=== PATIENT | female | born 1975 | race Caucasian/White ===

== ENCOUNTER → 2016-11-11 | Outpatient (CLI) | payer OTHER | END | disposition home or self-care (01) | LOC: C.PAPS 17:14 | PROVIDERS: ATTEND Obstetrics & Gynecology | DX: Z01.419 Encounter for gynecological examination (general) (routine) without abnormal findings (principal); R87.612 Low grade squamous intraepithelial lesion on cytologic smear of cervix (LGSIL) ==

== ENCOUNTER → 2016-12-12 | Outpatient (CLI) | payer OTHER | END | disposition home or self-care (01) | LOC: C.PATHSPEC 13:58 | PROVIDERS: ATTEND Obstetrics & Gynecology | DX: R87.613 High grade squamous intraepithelial lesion on cytologic smear of cervix (HGSIL) (principal) ==

== ENCOUNTER → 2017-02-06 | Outpatient (CLI) | payer OTHER | END | disposition home or self-care (01) | LOC: C.PATHSPEC 13:45 | PROVIDERS: ATTEND Obstetrics & Gynecology | DX: R87.613 High grade squamous intraepithelial lesion on cytologic smear of cervix (HGSIL) (principal) ==

== ENCOUNTER → 2017-07-23 | Outpatient (CLI) | payer OTHER | END | disposition home or self-care (01) | LOC: C.PAPS 14:16 | PROVIDERS: ATTEND Obstetrics & Gynecology | DX: N87.1 Moderate cervical dysplasia (principal) ==

== ENCOUNTER 2017-09-26 05:53 | Observation (INO) | payer OTHER ==
[2017-09-02 13:19] VITALS: BMI 24.0
--- NOTE | 2017-09-02 13:45 | PAT Medication Instructions ---
Service Date Sep 02, 2017. Current Home Medication List No Active Prescriptions or Reported Meds Medication Instructions For Your Scheduled Surgery No Active Prescriptions or Reported Meds-- Please contact PAT department if starting any medications prior to surgery. If you have any questions please call us at [phone] or [phone] or [phone]
[2017-09-02 14:30] LABS: BASO % 0.6 %; BASO ABS # 0.04 K/uL (0-0.2); COMPLETE YES; EOS % 1.3 %; HEMATOCRIT 37.9 % (37-47); IG% 0.2 %; LYMPH % 30.1 %; LYMPH ABS # 1.87 K/uL (1.2-3.4); MEAN CELL VOLUME 87.5 fL (80-100); MEAN CORPUSCULAR HEMOGLOBIN 28.2 pg (25-34); MEAN CORPUSCULAR HGB CONC 32.2 g/dl (32-36); MEAN PLATELET VOLUME 9.8 fL (7.4-10.4); MONO % 12.7 %; NEUT % 55.1 %; PLATELET COUNT 385 K/uL (130-400); RED BLOOD COUNT 4.33 M/uL (4.2-5.4); WHITE BLOOD COUNT 6.22 K/uL (4.8-10.8)
[2017-09-02 15:21] LABS: BUN/CREATININE RATIO 13.4 (10-20); CALCIUM 8.9 mg/dl (8.5-10.1); CREATININE 0.7 mg/dl (0.60-1.20); POTASSIUM 4.2 mmol/L (3.5-5.1)
[2017-09-26] VITALS (8 sets, daily range): BP systolic 119–141; BP diastolic 72–87; PULSE 56–65; TEMP 36.3–37; O2SAT 97–100; Ht 154.9 cm; Wt 57.4 kg
[~2017-09-26] VITALS: Ht 154.9 cm; Wt 57.4 kg
[2017-09-26] MEDS ORDERED: LACTATED RINGER'S 1000ML 1,000 ML IV SCH ×4 (06:00→09:15)
[2017-09-26] MEDS ORDERED: CEFAZOLIN 2000MG IV PUSH 10 ML IV SCH (06:00)
[2017-09-26] MEDS ORDERED: ACETAMINOPHEN 1000 MG/100 ML IV IV ONE (06:28)
--- NOTE | 2017-09-26 06:36 | History & Physical Bridge Note ---
H&P Re-Evaluation Bridge Note: I have examined the patient, reviewed the History & Physical and in the interval since the performance of the History & Physical I have noted the following changes of clinical significance: No changes noted
[2017-09-26] MEDS ORDERED: LIDOCAINE HCL 2% 2 ML VIAL (20MG/ML) ONE (06:40)
[2017-09-26] MEDS ORDERED: ONDANSETRON INJ 2 MG/ML 2 ML VIAL ONE (06:40)
[2017-09-26] MEDS ORDERED: DEXAMETHASONE SOD INJ 4 MG/ML VIAL ONE (06:40)
[2017-09-26] MEDS ORDERED: NEOSTIGMINE METHYLSULFATE 5 MG/5 ML SYR ONE (06:40)
[2017-09-26] MEDS ORDERED: MIDAZOLAM HCL 1 MG/ML 2ML VIAL ONE (06:40)
[2017-09-26] MEDS ORDERED: FENTANYL CITRATE INJ 50 MCG/1 ML 2 ML VIAL ONE ×2 (06:40→07:57)
[2017-09-26] MEDS ORDERED: GLYCOPYRROLATE INJ 0.2 MG/ML VIAL ONE (06:40)
[2017-09-26] MEDS ORDERED: ROCURONIUM BROMIDE 10 MG/ML 5 ML VIAL IV ONE (06:40)
[2017-09-26] MEDS ORDERED: PROPOFOL IV EMULSION 10 MG/ML 20 ML VIAL IV ONE (06:40)
[2017-09-26] MEDS ORDERED: BUPIVACAINE 0.5 % 5 MG/1 ML MPF 30ML VIAL ONE (07:04)
[2017-09-26] MEDS ORDERED: HYDROmorphone INJ 2 MG/ML SYR/VIAL ONE (08:08)
[2017-09-26] MEDS ORDERED: PROMETHAZINE HCL INJ 12.5 MG in SODIUM CHLORIDE 0.9% 50ML 50 ML IV PRN ×2 (08:15→09:15)
[2017-09-26] MEDS ORDERED: NALOXONE HCL 0.4 MG/1 ML VIAL/CARP IV PRN (08:15)
[2017-09-26] MEDS ORDERED: ATROPINE SULFATE 0.1 MG/ML 5ML SYR IV PRN (08:15)
[2017-09-26] MEDS ORDERED: EpHEDrine SULFATE INJ 50 MG/ML AMP IV PRN (08:15)
[2017-09-26] MEDS ORDERED: LABETALOL HCL IV 5 MG/ML 20ML IV PRN (08:15)
[2017-09-26] MEDS ORDERED: ONDANSETRON INJ 2 MG/ML 2 ML VIAL IV PRN ×2 (08:15→09:15)
[2017-09-26] MEDS ORDERED: FLUMAZENIL 0.1 MG/1 ML 10 ML VIAL IV PRN (08:15)
[2017-09-26] MEDS ORDERED: TISSEEL FIBRIN SEALANT 4ML TOP ONE (08:56)
[2017-09-26] MEDS ORDERED: MEPERIDINE HCL 50 MG/ML CARP IV PRN ×2 (09:15)
[2017-09-26] MEDS ORDERED: OXYCODONE/ACETAMINOPHEN 5-325 TAB PO PRN ×2 (09:15)
[2017-09-26] MEDS ORDERED: SIMETHICONE 80 MG CHEW PO PRN (09:15)
[2017-09-26] MEDS ORDERED: IBUPROFEN 600 MG TAB PO PRN (09:15)
[2017-09-26] MEDS ORDERED: ACETAMINOPHEN 325 MG TAB PO PRN (09:15)
[2017-09-26] MEDS ORDERED: KETOROLAC TROMETHAMINE 30 MG/ML VIAL IV. PRN (09:15)
[2017-09-26] MEDS ORDERED: MAGNESIUM HYDROXIDE SUSP 30 ML UDC PO PRN (09:15)
[2017-09-26] MEDS ORDERED: PROMETHAZINE HCL INJ 25 MG in SODIUM CHLORIDE 0.9% 50ML 50 ML IV PRN (09:15)
[2017-09-26] MEDS ORDERED: ZOLPIDEM TARTRATE 5 MG TAB PO PRN (09:15)
[2017-09-26] MEDS ORDERED: BISACODYL 10 MG SUPP PR PRN (09:15)
--- NOTE | 2017-09-26 09:17 | [facility] Post Operative Brief Note ---
Immediate Operative Summary Operative Date Sep 26, 2017. Pre-Operative Diagnosis Menorrhagia Post coital bleeding Post-Operative Diagnosis Same Procedure(s) Performed Robotic Assisted Total Laparoscopic Hysterectomy, Bilateral Salpingectomy, Cystoscopy Surgeon Dr Castro Communications Superintendent Surgeon(s) . Estimated Blood Loss 40ML Findings normal anatomy Specimens A. Uterus, bilateral fallopian tubes and cervix Drains Salinas Anesthesia General Complication(s) None Disposition Recovery Room / PACU
--- NOTE | 2017-09-26 09:17 | Discharge Instructions ---
Discharge Instructions Date of Service Sep 26, 2017. Admission Reason for Admission: Cervical Inraepithelial Neoplasia; Menorrhagia Discharge Discharge Diagnosis / Problem: menorrhagia Discharge Goals Goal(s): Routine recovery after surgery Activity Recommendations Activity Limitations: per Instructions/Follow-up section . Instructions / Follow-Up Instructions / Follow-Up POST OPERATIVE: BOWEL FUNCTION/MEDICATIONS: 1. Constipation pain and discomfort are the most common complaints 5-7 days after surgery. Points 2-6 address the things that can help. 2. Chewing gum can help stimulate the gut and help improve digestion and motility. 3. Milk of Magnesia 1-2 times per day until return of bowel function. 4. Colace is a stool softener that helps. Taking this 2-3 times per day until bowel function returns to normal is highly recommended. 5. Dulcolax is a laxative that may be used if several days have passed without a bowel movement. Alternatively Miralax may be used daily instead. 6. Drink plenty of fluids as this will also reduce constipation. 7. Narcotic pain medications will be prescribed by your physician. They are safe to use and we encourage you to use them. If you are not allergic, ibuprofen will also be prescribed. Many patients will be able to transition off of the narcotic medications to ibuprofen by postoperative day 3. ACTIVITY RECOMMENDATIONS: 1. Get plenty of rest and listen to your body. If you are tired, take a nap. 2. You may shower, but do not take a tub bath until you see your doctor at the 2 week post operative visit. 3. Absolutely NO intercourse and nothing in the vagina until you are examined by your doctor at the 6 week visit. At that visit it will be determined when such activities can be resumed. This can range from 6-12 weeks after your surgery depending on healing time. 4. The main physical activity in the first week should be walking. By the second week you can slowly increase activity. There are no limits on walking up and down stairs. 5. Do not lift more than 5-10 lbs for 4 weeks. Remember the "one-handed rule", i.e. if you can lift something with only one hand it's likely okay. 6. Minimize supervisor metal hanging like vacuuming and exercising for 4 weeks. "Overdoing it" can lead to incisions not healing, pain and vaginal bleeding , so again, listen to your body. 7. Driving can be resumed when you feel able. Do not drive within 24 hours of taking a narcotic medication. EXPECTATIONS: 1. Vaginal spotting, bleeding and discharge are common after surgery. There may even be an odor to the discharge which is often related to sutures used in the vagina. If you experience heavy vaginal bleeding, call the office number day or night [phone]. 2. Bladder discomfort is common after surgery from the catheter. This usually resolves in 1-2 weeks. 3. By the end of the 3rd or 4th week you should be feeling much better. It may take up to 6 weeks for your energy levels to return to normal. 4. Narcotic medications have side effects such as: dizziness, headache, nausea and/or vomiting. If you suspect your pain medication is causing problems, call our office and we may be able to prescribe an alternate medication. 5. The skin incisions are often covered with a liquid bandage. This will gradually peel off over time. CALL THE OFFICE IF YOU HAVE ANY OF THE FOLLOWIN. Temperature of 101 degrees or higher. 2. Severe abdominal or pelvic pain not relieved by pain medication. 3. Persistent nausea or vomiting. 4. Increased pain with urination or difficulty urinating. 5. Bright red bleeding that soaks more than 1 pad per hour. CONTACT PHONE NUMBERS: Main Office: [phone] Surgical Nurse: [phone] extension [phone] Avoid all tobacco products. If you need help to stop smoking, call [place]'s FREE QUITLINE at . This is a free call. Current Hospital Diet Patient's current hospital diet: Discharge Diet Recommended Diet: Regular Diet Procedures Procedures Performed: Robotic Assisted Total Laparoscopic Hysterectomy, Bilateral Salpingectomy, Cystoscopy Pending Studies Studies pending at discharge: no Medical Emergencies . Who to Call and When: Medical Emergencies: If at any time you feel your situation is an emergency, please call 911 immediately. . Non-Emergent Contact Non-Emergency issues call your: Grapple Skidder Operator . . "Provider Documentation" section prepared by Thong Castro. . VTE Core Measure Inpt VTE Proph given/why not?: Jeremy Aguillon, SCD's
[2017-09-26] MEDS ORDERED: MTR600X PO ×2 (09:18)
[2017-09-26] MEDS ORDERED: OXYC-57 PO ×2 (09:18)
--- NOTE | 2017-09-26 09:36 | OPERATIVE REPORT ---
DATE OF OPERATION: 09/26/2017 PREOPERATIVE DIAGNOSIS: Menorrhagia, cervical dysplasia. POSTOPERATIVE DIAGNOSIS: Same. PROCEDURE: Robotically assisted total laparoscopic hysterectomy, bilateral salpingectomy, cystoscopy. SURGEON: Dr. Castro. TABLE WORKER: None. ESTIMATED BLOOD LOSS: 40 mL. FINDINGS: Normal anatomy. SPECIMENS: Uterus, bilateral fallopian tubes and cervix. DRAINS: Salinas catheter. ANESTHETIC: General. COMPLICATIONS: None. DISPOSITION: Recovery room. OPERATION AND FINDINGS: DESCRIPTION OF PROCEDURE: Ania was given a general anesthetic, prepped and draped in dorsolithotomy position in [facility]. IV antibiotics given preoperatively. Salinas catheter placed in her bladder and VCare sewn into her cervix usual fashion. Gloves changed and a subumbilical incision made with scalpel cutting down through using open Cherrie technique through the subcutaneous fat to the fascia, splitting the rectus muscles and entering the peritoneal cavity without difficulty. At this stage, we then placed a blunt-tipped Cherrie trocar balloon inflated for stabilization of the port and then CO2 gas to insufflate the abdomen. FINDINGS: Upper abdomen normal, no sign of visceral organ injury. Deep Trendelenburg position obtained and uterus appeared normal as did the adnexa. Two robotic ports, 1 in the left, 1 in the right placed under direct visualization as well as an 11 mm bladeless accessory left upper quadrant port as well. Using the VCare, I manipulated the uterus, identified the ureters both on left and right side, they followed a normal course. The procedure was begun first by removing the left fallopian tube and then the right. These removed through the accessory port. We then coagulated the blood supply distal to the ovary on the left side, well away from the left ureter, cut this with monopolar bryson, same process with the round ligament. Bladder flap then sharply dissected and then uterine vessels skeletonized. We then coagulated the left uterine artery and vein with the bipolar [place]. Note we were well away from the left ureter. These vessels were then cut and then bladder flap was fully dissected away. Same process on the right. Once both uterine vessel ligations were coagulated we made an anterior colpotomy. Anterior colpotomy was then continued for full colpotomy staying medial to our uterine vessel ligations. Uterus was then removed into the vagina and maintained there for pneumoperitoneum. The instrument exchange then occurred. Arm #1 became the bartolo belly dump driver and the DANIE, #2 became the cobra. A 12 inch, 2-0 90 day V-Loc suture passed through the accessory port. Cuff closed from left to right, back right to left, taking at least good 1 cm full thickness bites of vaginal mucosa. Suture was then cut so there was no tail and then needle removed through the accessory port. After generous irrigation and suction, Tisseel was applied to the site. Hemostasis was excellent. Cystoscopy was performed by removing the Salinas catheter. Cystoscope revealed a normal bladder, no sign of damage, no sutures visualized and good strong jets of bluish dye from left and right ureter openings. Cystoscope removed and a new Salinas catheter placed. Uterus had been removed from the vagina. Bleeding was minimal. Regowned and gloved. After scrubbing back in and then removed all the robotic instruments. Gas allowed to escape. Ports removed as well as instruments. Robot had been undocked. Incision injected with 0.5% Marcaine. Fascia closed with [id number] 0 Vicryl sutures and left upper quadrant as well. Incision closed this way and then 4-0 subcuticular Monocryl closures with Dermabond. Sponge and instrument counts correct at the end of the procedure. I attest to the content of the Intraoperative Record and any orders documented therein. Any exception s are noted below.
[2017-09-26] MEDS: HYDROmorphone INJ 1 MG/ML SYR IV PRN ×2 (09:40→09:45)
--- NOTE | 2017-09-26 10:19 | Anesthesiology Progress Note ---
Anesthesia Post Op Note Date & Time Sep 26, 2017 at 10:19 Vital Signs Pain Intensity: 4 Vital Signs Past 12 Hours Date Time Temp Pulse Resp B/P (MAP) Pulse Ox O2 Delivery O2 Flow Rate FiO2 09/26/17 10:15 57 14 137/83 100 Nasal Cannula 2 09/26/17 10:05 36.8 64 14 159/79 97 Nasal Cannula 2 09/26/17 09:55 71 14 138/80 97 Room Air 09/26/17 09:45 68 14 146/83 100 Oxymask 3 09/26/17 09:35 60 14 146/79 100 Oxymask 5 09/26/17 09:27 36.1 72 12 138/70 100 Oxymask 10 09/26/17 06:42 37 64 16 129/77 (94) 97 Room Air Notes Mental Status: alert / awake / arousable, participated in evaluation Pt Amnestic to Procedure: Yes Nausea / Vomiting: adequately controlled Pain: adequately controlled Airway Patency, RR, SpO2: stable & adequate BP & HR: stable & adequate Hydration State: stable & adequate Anesthetic Complications: no major complications apparent
[2017-09-26] MEDS ORDERED: IV FLUIDS COMPLETED PRN (12:30)
[2017-09-26] MEDS ORDERED: DOCUSATE SODIUM 100 MG CAP PO SCH (21:00)
--- NOTE | 2017-09-27 12:09 | Medical Student: [facility] ---
Operative Report Operative Date Sep 27, 2017. Pre-Operative Diagnosis Menorrhagia and low grade cervical dysplsia Post-Operative Diagnosis Menorrhagia and low grade cervical dysplasia Procedure(s) Performed Laproscopic Total Hysterectomy, bilateral salpigectomy, and cystoscopy Surgeon Dr. Castro Supervisor Electronics Assembly Surgeon(s) none Estimated Blood Loss 40cc Findings Normal Uterus and adnexa. Specimens Uterus and bilateral fallopian tubes Drains Salinas Catheter Anesthesia General Complication(s) None Disposition Recovery Room / PACU Indications Heavy bleeding Low grade cervical dysplasia
--- NOTE | 2017-09-30 08:28 | DISCHARGE SUMMARY ---
Ania had a total laparoscopic hysterectomy on 09/26/2017. Operative note dictated. The procedure was uncomplicated. HOSPITAL COURSE: Her course in hospital was a mere few hours. She was discharged in the evening of the same day. At that time she was ambulating, passing flatus, minimal bleeding, pain was well controlled. Her nausea was controlled and she was voiding. PHYSICAL EXAMINATION: Her vital signs was stable. She was afebrile. IMPRESSION AND PLAN: The patient sent home several hours after a total laparoscopic hysterectomy and told to contact us with any problems. Follow up in the office set up and discharge instructions reviewed.
== END 2017-09-26 19:40 | disposition home or self-care (01) ==
LOC: C.ACU 05:53 → C.MS4N 06:49 → ENRESERV 10:01
PROVIDERS: ADMIT Obstetrics & Gynecology; ATTEND Obstetrics & Gynecology
DX: N92.0 Excessive and frequent menstruation with regular cycle (principal); N87.9 Dysplasia of cervix uteri, unspecified; N93.0 Postcoital and contact bleeding; N87.0 Mild cervical dysplasia; R87.612 Low grade squamous intraepithelial lesion on cytologic smear of cervix (LGSIL); F17.210 Nicotine dependence, cigarettes, uncomplicated; G47.33 Obstructive sleep apnea (adult) (pediatric); F41.9 Anxiety disorder, unspecified; F32.9 Major depressive disorder, single episode, unspecified; Z86.32 Personal history of gestational diabetes
CPT/HCPCS: 58571; S2900

== ENCOUNTER 2017-09-28 22:53 | Emergency (ER) | payer OTHER ==
[~2017-09-28] VITALS: Ht 154.9 cm; Wt 58.4 kg
[~2017-09-28 22:53] MED LIST: MTR600X PO; OXYC-57 PO
[2017-09-28 22:59] VITALS: TEMP 36.6; Ht 154.9 cm; Wt 58.4 kg
[2017-09-28] MEDS ORDERED: ONDANSETRON INJ 2 MG/ML 2 ML VIAL IV STA ×2 (23:09→23:48)
[2017-09-28] MEDS ORDERED: SODIUM CHLORIDE 0.9% 1000ML 1,000 ML IV STA (23:09)
[2017-09-28] MEDS ORDERED: HYDROmorphone INJ 1 MG/ML SYR IV STA (23:09)
--- NOTE | 2017-09-28 23:21 | EMERGENCY ROOM VISIT NOTE ---
History Report prepared by Radha: Everett Freeman Under the Supervision of: Dr. Louis Riley M.D. First contact with patient: 23:04 Chief Complaint: SHORTNESS OF BREATH Stated Complaint: S/P HYSTERECTOMY, DIGESTIVE ISSUES, SOB, NAUSEA History of Present Illness The patient is a 42 year old female who presents to the Emergency Room with complaints of worsening abdominal pain and shortness of breath starting two days ago. The patient states that she has a hysterectomy two days ago, and she was discharged that night. Since then she is sore in that area around the stitches. Then, she states that she cross some [place] soup for dinner, and afterwards she was having lower abdominal pain. She notes that she felt constipated, and then she had a bowel movement that was diarrhea. She is additionally complaining that she is having some difficulty breathing, nausea, and she is clammy. She additionally reports some light vaginal discharge without any heavy bleeding. The patient denies any leg swelling, history of blood clots, and using any blood thinners. She notes that she is only taking ibuprofen for the pain. Source of History: patient Onset: two days ago Position: abdomen, other (global) Quality: other (shortness of breath) Timing: worsening Associated Symptoms: + nausea, + diarrhea Review of Systems See HPI for pertinent positives & negatives. A total of 10 systems reviewed and were otherwise negative. Past Medical & Surgical Medical Problems: (1) Dysplasia of cervix (2) Menorrhagia Family History Patient reports no known family medical history. Social History Smoking Status: Never Smoker Marital Status: in relationship Occupation Status: employed Current/Historical Medications Scheduled Ondasetron Odt (Zofran Odt), 4-8 MG SL Q6H Scheduled PRN Ibuprofen (Ibuprofen), 600 MG PO Q6H PRN for Pain,CROSS,cramping,or fever Oxycodone/Acetaminophen 5MG/325MG (Percocet 5MG/325MG), 1 TAB PO Q4H PRN for Pain (pain scale 1-5) Promethazine Hcl (Phenergan), 25 MG PO Q4H PRN for Nausea Allergies Coded Allergies: NO KNOWN DRUG ALLERGIES (Verified Allergy, Unknown, NKDA, 09/28/17) Physical Exam Vital Signs Date Time Temp Pulse Resp B/P (MAP) Pulse Ox O2 Delivery O2 Flow Rate FiO2 09/29/17 01:50 86 18 117/71 96 Room Air 09/29/17 00:01 56 09/29/17 00:00 61 16 116/88 99 Room Air 09/28/17 23:48 100 Room Air 09/28/17 22:59 36.6 76 28 176/90 99 Nasal Cannula Physical Exam GENERAL: Patient is in moderate distress, uncomfortable, and diaphoretic HEENT: No acute trauma, normocephalic atraumatic, mucous membranes moist, no nasal congestion, no scleral icterus. NECK: No stridor, no adenopathy, no meningismus, trachea is midline. LUNGS: No dyspnea. Clear to auscultation and equal bilaterally. No wheeze, no rhonchi. HEART: Regular rate and rhythm. No murmurs, rubs, gallops appreciated. ABDOMEN: Surgical port sites of the abdomen with Dermabond with surrounding bruising of these sites. Soft, nontender, bowel sounds positive, no masses appreciated, no peritonitis. BACK: No midline tenderness, no CVA tenderness EXTREMITIES: Normal motion all extremities, no cyanosis, no edema. NEUROLOGIC: Alert and oriented, no acute motor or sensory deficits, no focal weakness, cranial nerves grossly intact. SKIN: No rash, no jaundice, no diaphoresis. Medical Decision & Procedures Laboratory Results 09/28/17 23:43 Red Blood Count 4.18, Mean Corpuscular Volume 87.1, Mean Corpuscular Hemoglobin 29.2, Mean Corpuscular Hemoglobin Concent 33.5, Mean Platelet Volume 10.6, Neutrophils (%) (Auto) 74.1, Lymphocytes (%) (Auto) 16.0, Monocytes (%) (Auto) 8.6, Eosinophils (%) (Auto) 0.6, Basophils (%) (Auto) 0.4, Neutrophils # (Auto) 8.42, Lymphocytes # (Auto) 1.82, Monocytes # (Auto) 0.98, Eosinophils # (Auto) 0.07, Basophils # (Auto) 0.04 09/28/17 23:43 Test 09/28/17 23:43 09/29/17 00:15 White Blood Count 11.36 K/uL (4.8-10.8) Red Blood Count 4.18 M/uL (4.2-5.4) Hemoglobin 12.2 g/dL (12.0-16.0) Hematocrit 36.4 % (37-47) Mean Corpuscular Volume 87.1 fL (80-100) Mean Corpuscular Hemoglobin 29.2 pg (25-34) Mean Corpuscular Hemoglobin Concent 33.5 g/dl (32-36) Platelet Count 312 K/uL (130-400) Mean Platelet Volume 10.6 fL (7.4-10.4) Neutrophils (%) (Auto) 74.1 % Lymphocytes (%) (Auto) 16.0 % Monocytes (%) (Auto) 8.6 % Eosinophils (%) (Auto) 0.6 % Basophils (%) (Auto) 0.4 % Neutrophils # (Auto) 8.42 K/uL (1.4-6.5) Lymphocytes # (Auto) 1.82 K/uL (1.2-3.4) Monocytes # (Auto) 0.98 K/uL (0.11-0.59) Eosinophils # (Auto) 0.07 K/uL (0-0.5) Basophils # (Auto) 0.04 K/uL (0-0.2) RDW Standard Deviation 45.1 fL (36.4-46.3) RDW Coefficient of Variation 14.2 % (11.5-14.5) Immature Granulocyte % (Auto) 0.3 % Immature Granulocyte # (Auto) 0.03 K/uL (0.00-0.02) Anion Gap 10.0 mmol/L (3-11) Est Creatinine Clear Calc Drug Dose 118.1 ml/min Estimated GFR () 138.5 Estimated GFR (Non- 119.5 BUN/Creatinine Ratio 11.4 (10-20) Calcium Level 8.5 mg/dl (8.5-10.1) Total Bilirubin 0.4 mg/dl (0.2-1) Direct Bilirubin 0.1 mg/dl (0-0.2) Aspartate Amino Transf (AST/SGOT) 14 U/L (15-37) Alanine Aminotransferase (ALT/SGPT) 14 U/L (12-78) Alkaline Phosphatase 44 U/L (45-117) Total Protein 7.2 gm/dl (6.4-8.2) Albumin 3.5 gm/dl (3.4-5.0) Lipase 123 U/L (73-393) Urine Color YELLOW Urine Appearance CLEAR (CLEAR) Urine pH 8.0 (4.5-7.5) Urine Specific [place] 1.012 (1.000-1.030) Urine Protein NEG (NEG) Urine Glucose (UA) NEG (NEG) Urine Ketones 1+ (NEG) Urine Occult Blood NEG (NEG) Urine Nitrite NEG (NEG) Urine Bilirubin NEG (NEG) Urine Urobilinogen NEG (NEG) Urine Leukocyte Esterase NEG (NEG) Urine WBC (Auto) 0 /hpf (0-5) Urine RBC (Auto) 0-4 /hpf (0-4) Urine Hyaline Casts (Auto) 0 /lpf (0-5) Urine Epithelial Cells (Auto) 10-20 /lpf (0-5) Urine Bacteria (Auto) NEG (NEG) Urine Test NEG (NEG) Laboratory results as reviewed by me. Medications Administered Medications (Trade) Dose Ordered Sig/[place] Route Start Time Stop Time Status Last Admin Dose Admin Hydromorphone HCl (Dilaudid Inj) 1 mg NOW STAT IV 09/28/17 23:09 09/28/17 23:11 DC 09/28/17 23:38 1 MG Ondansetron HCl (Zofran Inj) 4 mg NOW STAT IV 09/28/17 23:09 09/28/17 23:11 DC 09/28/17 23:38 4 MG Sodium Chloride 1,000 ml @ 999 mls/hr Q1H1M STAT IV 09/28/17 23:09 09/29/17 00:09 DC 09/28/17 23:39 999 MLS/HR Ondansetron HCl (Zofran Inj) 4 mg NOW STAT IV 09/28/17 23:48 09/28/17 23:49 DC 09/28/17 23:59 4 MG Promethazine HCl 12.5 mg/Sodium Chloride 50.5 ml @ 202 mls/hr NOW STAT IV 09/29/17 00:00 09/29/17 00:14 DC 09/29/17 00:23 202 MLS/HR Promethazine HCl (Phenergan 25MG Home Pack) 1 homepack UD ONCE PO 09/29/17 01:45 09/29/17 01:46 DC 09/29/17 01:53 1 HOMEPACK Ondansetron HCl (ZOFRAN ODT 4MG Home Pack) 1 homepack UD ONCE PO 09/29/17 01:45 09/29/17 01:46 DC 09/29/17 01:53 1 [facility] ED Course 2305: The patient was evaluated in room B11. A complete history and physical exam was performed. 2348: I reevaluated the patient, and her pain was a little better. She is still nauseous, and her shortness of breath is worse. 0109: I went to reassess the patient, and she was in the bathroom. 0128: I reevaluated the patient, and she had complete resolution of her symptoms and wants to go home. I discussed the risks and benefits of a CT scan, and she would like to avoid getting one. I made the patient aware that she could return at any time if her symptoms worsen. The patient's is at bedside, and he is agreeable with the plan to go home. The patient will be discharged home. Medical Decision Differential: Post-op infection, Post-op injury, Appendicitis, Diverticulitis, UTI, Pyelonephritis, Renal Colic, Bowel Obstruction, amongst other pathologies entertained. 42 yr old female with diffuse lower abdominal pain, diarrhea, nausea and now some shortness of breath. She is very anxious appearing on arrival. After eventually calming down and getting pain under control she has no further CP nor SOB, thus I do not feel this is post op PE. Her abdominal exam is now benign. BP improved. Without hypotension, tachycardia, abdominal distention, nor continued pain in setting of normal HgB, I do not feel this is post op bleed. Exam and story not consistent with infection at this time. UA clear. Not consistent with obstruction. As she is feeling much better, I suspect pain is due to fact she stopped taking pain meds due to constipation fears and then chest pain/sob was more anxiety related. That said I made clear symptoms requiring immediate RTED. Stressed importance of rest, hydration, and using medications as needed. Advised Business Initiatives Manager follow up. Medication Reconcilliation Current Medication List: was personally reviewed by me Blood Pressure Screening Patient's blood pressure: Elevated blood pressure Blood pressure disposition: Elevated BP felt to be situational Impression Primary Impression: Post-operative pain Additional Impression: Post-operative nausea and vomiting Scribe Attestation The scribe's documentation has been prepared under my direction and personally reviewed by me in its entirety. I confirm that the note above accurately reflects all work, treatment, procedures, and medical decision making performed by me. Departure Information Dispostion Home / Self-Care Prescriptions Ondasetron Odt (ZOFRAN ODT) 4 Mg Tab 4-8 MG SL Q6H for Nausea, #12 TAB Prov: Louis Riley M.D. 09/29/17 Promethazine Hcl (Phenergan) 25 Mg Tab 25 MG PO Q4H Y for Nausea, #20 TAB Prov: Louis Riley M.D. 09/29/17 Referrals Charity Barraza DO (PCP) Forms HOME CARE DOCUMENTATION FORM, IMPORTANT VISIT INFORMATION Patient Instructions My [facility] Additional Instructions Keep well hydrated. Avoid constipation with Miralax. Return if significant worsening pain, fevers, vomiting, or other concerns. Call 911 if shortness of breath, passing out, chest pain or other concerns. Follow up with Your Fastener Technologist as soon as possible Problem Qualifiers
[2017-09-28] MEDS ORDERED: PROMETHAZINE HCL INJ 25 MG/ML 1 ML VIAL IV STA (23:48)
[2017-09-29] MEDS ORDERED: PROMETHAZINE HCL INJ 12.5 MG in SODIUM CHLORIDE 0.9% 50ML 50 ML IV STA ×2
[2017-09-29 00:07] LABS: BASO % 0.4 %; BASO ABS # 0.04 K/uL (0-0.2); COMPLETE YES; EOS % 0.6 %; HEMATOCRIT 36.4 % (37-47); IG% 0.3 %; LYMPH ABS # 1.82 K/uL (1.2-3.4); MEAN CELL VOLUME 87.1 fL (80-100); MEAN CORPUSCULAR HEMOGLOBIN 29.2 pg (25-34); MEAN CORPUSCULAR HGB CONC 33.5 g/dl (32-36); MEAN PLATELET VOLUME 10.6 fL (7.4-10.4); MONO % 8.6 %; NEUT % 74.1 %; PLATELET COUNT 312 K/uL (130-400); RED BLOOD COUNT 4.18 M/uL (4.2-5.4); WHITE BLOOD COUNT 11.36 K/uL (4.8-10.8)
[2017-09-29 00:30] LABS: BUN/CREATININE RATIO 11.4 (10-20); CALCIUM 8.5 mg/dl (8.5-10.1); CREATININE 0.52 mg/dl (0.60-1.20); POTASSIUM 2.9 mmol/L (3.5-5.1)
[2017-09-29 00:31] LABS: URINE APPEARANCE CLEAR (CLEAR); URINE BILIRUBIN NEG (NEG); URINE COLOR YELLOW; URINE NITRITE NEG (NEG); URINE SPECIFIC GRAVITY 1.012 (1.000-1.030); UROBILINOGEN NEG (NEG); ZZUR CULT IF INDIC CLEAN CATCH NO
[2017-09-29 00:33] LABS: MANUAL MICROSCOPIC REQUIRED? NO; REVIEW REQ? NO
[2017-09-29] MEDS ORDERED: ONDA4TAB10 SL (01:45)
[2017-09-29] MEDS ORDERED: PROM25TA9 PO (01:45)
[2017-09-29] MEDS ORDERED: PHENERGAN 25MG HOMEPACK PO ONE (01:45)
[2017-09-29] MEDS ORDERED: ONDANSETRON HOME PACK 4MG OD TAB PO ONE (01:45)
[2017-09-29 01:50] VITALS: BP 117/71; PULSE 86; O2SAT 96
== END 2017-09-29 02:00 | disposition home or self-care (01) ==
LOC: C.EDB 22:54
DX: G89.18 Other acute postprocedural pain (principal); R11.0 Nausea; Z90.710 Acquired absence of both cervix and uterus; R06.02 Shortness of breath; R03.0 Elevated blood-pressure reading, without diagnosis of hypertension

== ENCOUNTER 2017-10-10 21:52 | Emergency (ER) | payer OTHER ==
[~2017-10-10] VITALS: Ht 154.9 cm; Wt 57.4 kg
[~2017-10-10 21:52] MED LIST changes: +ONDA4TAB10 SL; +PROM25TA9 PO
[2017-10-10 21:58] VITALS: TEMP 36.8; Ht 154.9 cm; Wt 57.4 kg
[2017-10-10 22:35] LABS: URINE APPEARANCE CLEAR (CLEAR); URINE BILIRUBIN NEG (NEG); URINE COLOR YELLOW; URINE EPITHELIAL CELL AUTO >30 /lpf (0-5); URINE NITRITE NEG (NEG); URINE SPECIFIC GRAVITY 1.015 (1.000-1.030); UROBILINOGEN NEG (NEG); ZZUR CULT IF INDIC CLEAN CATCH NO
[2017-10-10 22:36] LABS: MANUAL MICROSCOPIC REQUIRED? NO; REVIEW REQ? NO
[2017-10-10 22:41] LABS: BASO % 1.6 %; BASO ABS # 0.12 K/uL (0-0.2); COMPLETE YES; EOS % 4.5 %; HEMATOCRIT 35.2 % (37-47); IG% 0.1 %; LYMPH % 36.3 %; MEAN CORPUSCULAR HEMOGLOBIN 28.8 pg (25-34); MEAN CORPUSCULAR HGB CONC 32.7 g/dl (32-36); MEAN PLATELET VOLUME 9.5 fL (7.4-10.4); MONO % 10.2 %; NEUT % 47.3 %; PLATELET COUNT 388 K/uL (130-400); WHITE BLOOD COUNT 7.71 K/uL (4.8-10.8)
[2017-10-10 23:00] LABS: BUN/CREATININE RATIO 18.4 (10-20); CALCIUM 8.8 mg/dl (8.5-10.1); CREATININE 0.59 mg/dl (0.60-1.20); POTASSIUM 3.8 mmol/L (3.5-5.1)
[2017-10-10 23:23] VITALS: BP 145/66; PULSE 67; O2SAT 99
[2017-10-10] MEDS ORDERED: DICY10CA55 PO (23:24)
[2017-10-10] MEDS ORDERED: BENTYL HOME PACK 10 MG VIAL PO ONE (23:30)
--- NOTE | 2017-10-11 04:15 | EMERGENCY ROOM VISIT NOTE ---
History First contact with patient: 22:11 Chief Complaint: GI ASSESSMENT Stated Complaint: DGIESTIVE DISCOM,BLOOD IN STOOL,HYSTERECTOM ON09/26 Nursing Triage Summary: Pt reports generalized abdominal pain and constipation today. Pt concerned because she noticed blood in stool and had recent lap hysterectomy on 09-26. Denies any nausea or vomiting. History of Present Illness The patient is a 42 year old female who presents to the Emergency Room with complaints of 6 episodes of diarrhea today who had a little bit of bright red blood in her stool. Patient states she had some alcoholic beverages last night prior to the episode of the diarrhea and took some MiraLAX today. Patient does have hemorrhoids. No colonoscopy in the past. She is a family history of colon cancer with her parent having this in their 50s. Patient complains of minimal diffuse abdominal cramping without localized pain. 2 out of 10. It does not radiate. Nothing makes it better or worse. Patient denies black stool , fever, chills, cough, congestion, back pain, urinary symptoms. Review of Systems See HPI for pertinent positives & negatives. A total of 10 systems reviewed and were otherwise negative. Past Medical/Surgical History Medical Problems: (1) Dysplasia of cervix (2) Menorrhagia Family History Patient reports no known family medical history. Social History Smoking Status: Current Every Day Smoker Smokeless Tobacco Use: No Drug Use: none Marital Status: , in relationship Housing Status: lives with family Occupation Status: employed Current/Historical Medications Scheduled Dicyclomine Hcl (Bentyl), 10 MG PO Q6 Physical Exam Vital Signs Date Time Temp Pulse Resp B/P (MAP) Pulse Ox O2 Delivery O2 Flow Rate FiO2 10/10/17 23:23 67 16 145/66 99 Room Air 10/10/17 21:58 36.8 72 18 139/75 98 Room Air Physical Exam VITALS: Vitals are noted on the nurse's note and reviewed by myself. Vital signs stable. GENERAL: Pleasant female, in no acute distress, nondiaphoretic, well-developed well-nourished. SKIN: Capillary reflex less than 2 seconds. HEENT: Normocephalic. PERRLA. EOMI. Nares patent. Mucous membranes moist. Neck is supple without nuchal rigidity. HEART: Regular rate and rhythm without murmurs gallops or rubs. LUNGS: Clear to auscultation bilaterally without wheezes, rales or rhonchi. No retractions or accessory muscle use. ABDOMEN: Positive bowel sounds x 4. Normal tympanic percussion. Soft, nontender, without masses or organomegaly. Alba sign negative. No guarding or rebound tenderness. No CVA tenderness Rectal exam: No fissures or tears, multiple hemorrhoids present. Maintenance Foreman present MUSCULOSKELETAL: No gross musculoskeletal defects. No pedal edema. No calf tenderness. NEURO: Patient was alert and oriented to person place and time. Normal sensation to light and sharp touch. No focal neurological deficits. Medical Decision & Procedures Laboratory Results 10/10/17 22:30 Red Blood Count 4.00, Mean Corpuscular Volume 88.0, Mean Corpuscular Hemoglobin 28.8, Mean Corpuscular Hemoglobin Concent 32.7, Mean Platelet Volume 9.5, Neutrophils (%) (Auto) 47.3, Lymphocytes (%) (Auto) 36.3, Monocytes (%) (Auto) 10.2, Eosinophils (%) (Auto) 4.5, Basophils (%) (Auto) 1.6, Neutrophils # (Auto ) 3.64, Lymphocytes # (Auto) 2.80, Monocytes # (Auto) 0.79, Eosinophils # (Auto ) 0.35, Basophils # (Auto) 0.12 10/10/17 22:30 Test 10/10/17 22:16 10/10/17 22:30 Urine Color YELLOW Urine Appearance CLEAR (CLEAR) Urine pH 8.0 (4.5-7.5) Urine Specific [place] 1.015 (1.000-1.030) Urine Protein NEG (NEG) Urine Glucose (UA) NEG (NEG) Urine Ketones NEG (NEG) Urine Occult Blood TRACE (NEG) Urine Nitrite NEG (NEG) Urine Bilirubin NEG (NEG) Urine Urobilinogen NEG (NEG) Urine Leukocyte Esterase TRACE (NEG) Urine WBC (Auto) 1-5 /hpf (0-5) Urine RBC (Auto) 5-10 /hpf (0-4) Urine Hyaline Casts (Auto) 0 /lpf (0-5) Urine Epithelial Cells (Auto) >30 /lpf (0-5) Urine Bacteria (Auto) NEG (NEG) White Blood Count 7.71 K/uL (4.8-10.8) Red Blood Count 4.00 M/uL (4.2-5.4) Hemoglobin 11.5 g/dL (12.0-16.0) Hematocrit 35.2 % (37-47) Mean Corpuscular Volume 88.0 fL (80-100) Mean Corpuscular Hemoglobin 28.8 pg (25-34) Mean Corpuscular Hemoglobin Concent 32.7 g/dl (32-36) Platelet Count 388 K/uL (130-400) Mean Platelet Volume 9.5 fL (7.4-10.4) Neutrophils (%) (Auto) 47.3 % Lymphocytes (%) (Auto) 36.3 % Monocytes (%) (Auto) 10.2 % Eosinophils (%) (Auto) 4.5 % Basophils (%) (Auto) 1.6 % Neutrophils # (Auto) 3.64 K/uL (1.4-6.5) Lymphocytes # (Auto) 2.80 K/uL (1.2-3.4) Monocytes # (Auto) 0.79 K/uL (0.11-0.59) Eosinophils # (Auto) 0.35 K/uL (0-0.5) Basophils # (Auto) 0.12 K/uL (0-0.2) RDW Standard Deviation 45.8 fL (36.4-46.3) RDW Coefficient of Variation 14.1 % (11.5-14.5) Immature Granulocyte % (Auto) 0.1 % Immature Granulocyte # (Auto) 0.01 K/uL (0.00-0.02) Anion Gap 6.0 mmol/L (3-11) Est Creatinine Clear Calc Drug Dose 103.3 ml/min Estimated GFR () 132.9 Estimated GFR (Non- 114.6 BUN/Creatinine Ratio 18.4 (10-20) Calcium Level 8.8 mg/dl (8.5-10.1) ED Course Prior records/ancillary studies reviewed. Triage Nursing notes reviewed. Additional history obtained from family The patient's history was concerning for blood in stool. Differential diagnosis: Etiologies such as diverticulosis, AVM, coagulopathy, colitis, inflammatory bowel disease, malignancy, fissure, hemorrhoids, as well as others were entertained. Physical exam: As above. The patients vital signs were stable. ER treatment provided: Keith On reassessment the patient felt better. Diagnostics interpreted by me: The labs revealed mild anemia. No worrisome electrolyte abnormality This appears to be consistent with diarrhea who had some minimal amount of bright red blood in her stool. This most likely is from her hemorrhoids as she' s had multiple episodes of diarrhea and had several alcohol beverages last night prior to the episode beginning. Patient does have a family history of colon cancer and was strongly encouraged to get a colonoscopy within the next few months. Patient verbalized understanding of this. She is also advised to follow with GI for the intermittent hemorrhoidal bleeding. Patient did not have acute abdomen on exam. She is well-appearing. Mild anemia. She is advised to follow-up with GI in a few days or here in the ER sooner for abdominal pain, heavy rectal bleeding, black stool, worsening signs or symptoms or as needed. By the evaluation outlined above emergent etiologies such as esophageal perforation, peptic ulcer disease, variceal bleed, coagulopathy, gastritis, epistaxis, inflammatory bowel disease, as well as others were deemed relatively unlikely. The pt informed about the findings as listed above. All questions were answered and pleased with the treatment. Return instructions were outlined and the patient was discharged in stable condition. Outpatient prescription management: Bentyl Referral: The patient was referred back to their primary care physician and GI for follow- up in 2 to 3 days for a recheck of the current condition Case reviewed with my attending The chart was completed utilizing [employer] Speech voice recognition software. Grammatical errors, random word insertions, pronoun errors, and incomplete sentences are an occassional consequence of this system due to software limitations, ambient noise, and hardware issues. Any formal questions or concerns about the content, text, or information contained within the body of this dictation should be directly addressed to the physician acute care nursing assistant for clarification. Medical Decision As above Medication Reconcilliation Current Medication List: was personally reviewed by me Blood Pressure Screening Patient's blood pressure: Elevated blood pressure Blood pressure disposition: Elevated BP felt to be situational Impression Primary Impression: Hemorrhoids Additional Impression: Hematochezia Departure Information Dispostion Home / Self-Care Condition GOOD Prescriptions Dicyclomine Hcl (BENTYL) 10 Mg Cap 10 MG PO Q6, #20 CAP Prov: Aishwarya Markham .JACQUELIN 10/10/17 Referrals Miguel Ángel Ochoa M.D. Forms HOME CARE DOCUMENTATION FORM, IMPORTANT VISIT INFORMATION Patient Instructions Hemorrhoids Self Care, My [facility], ED Hematochezia Stable Additional Instructions Do not strain when you go the bathroom. Recommend outpatient colonoscopy for family history of colon cancer and ongoing chronic intermittent blood in stool. Acetaminophen(Tylenol) may be used for fever or pain. Use 1000mg every six hours as needed. Avoid using more than 3000mg in a 24 hour period. Rest and drink plenty of fluids as tolerated. Continue current medications. Return to the ER immediately for worsening or persistent blood in stool, black stool, abdominal pain, vomiting, fevers, chest pains, difficulty breathing, worsening of your condition, or as needed. Follow up with your primary physician and/or GI in 2-3 days for a recheck of your current condition. Problem Qualifiers Primary Impression: Hemorrhoids Hemorrhoid type: unspecified Qualified Codes: K64.9 - Unspecified hemorrhoids
== END 2017-10-10 23:23 | disposition home or self-care (01) ==
LOC: C.EDB 21:56 → C.EDC 23:23
DX: K64.9 Unspecified hemorrhoids (principal); K92.1 Melena; F17.200 Nicotine dependence, unspecified, uncomplicated

== ENCOUNTER 2018-01-18 00:21 | Emergency (ER) | payer OTHER ==
[~2018-01-18] VITALS: Ht 154.9 cm; Wt 58.7 kg
[2018-01-18 00:24] VITALS: TEMP 36.8; Ht 154.9 cm; Wt 58.7 kg
[2018-01-18 00:32] VITALS: O2SAT 96
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
[2018-01-18 01:05] LABS: CALCIUM 8.5 mg/dl (8.5-10.1); CREATININE 0.7 mg/dl (0.60-1.20); POTASSIUM 4.2 mmol/L (3.5-5.1)
[2018-01-18 04:45] VITALS: BP 112/63; PULSE 82; O2SAT 98
--- NOTE | 2018-01-18 07:35 | DIAGNOSTIC IMAGING REPORT ---
LEFT ANKLE 3 VIEWS CLINICAL HISTORY: Left ankle injury. Fall. FINDINGS: 3 views of the left ankle are obtained. No prior studies are available for comparison at the time of dictation. The skeletal structures are well mineralized. No fracture is seen. The ankle mortise is intact. A tiny plantar calcaneal enthesophyte is observed. There is a small joint effusion. Soft tissue edema is noted around the ankle. IMPRESSION: Soft tissue swelling and joint effusion. No left ankle fracture is seen. Electronically signed by: Luis Pastor M.D. 01/18/2018 7:34 AM Dictated Date/Time: 01/18/2018 7:33 AM
== END 2018-01-18 04:53 | disposition home or self-care (01) ==
LOC: EDBD 00:21 → C.EDB 00:22
DX: T51.91XA Toxic effect of unspecified alcohol, accidental (unintentional), initial encounter (principal); S93.402A Sprain of unspecified ligament of left ankle, initial encounter; W18.30XA Fall on same level, unspecified, initial encounter; N87.9 Dysplasia of cervix uteri, unspecified; F12.10 Cannabis abuse, uncomplicated

== ENCOUNTER 2024-08-17 22:06 | Inpatient (IN) ==
--- NOTE | 2024-08-17 22:28 | Emergency Department Note ---
History of Present Illness General Chief complaint: Fever Stated complaint: COLONOSCOPY,FEVER,VOMITING,NAUSEA,ABD PAIN Time Seen by Provider: 08/17/24 22:15 History of Present Illness Maximum Pain Intensity: 10 This 49-year-old female who had colonoscopy today and 2 polyps removed presents ER complaining of severe abdominal pain with fever and chills and not feeling well. Patient states she had no problems with the anesthesia that she is aware of states feeling slightly groggy. Patient denies chest pain, dyspnea, cough, congestion, vomiting, rectal bleeding. Home Medications Medication Instructions Recorded Confirmed Type cholecalciferol (vitamin D3) 50 50 mcg PO DAILY 05/28/22 08/18/24 History mcg (2,000 unit) capsule (Vitamin D3) quetiapine 100 mg tablet 100 mg PO HS 05/28/22 08/18/24 History Medical Marijuana 1 dose PO DAILY 08/05/24 08/18/24 History triamcinolone acetonide 55 mcg 1 spray intranasal DAILY 08/05/24 08/18/24 History nasal spray aerosol (Nasacort) sertraline 50 mg tablet 50 mg PO DAILY 08/18/24 08/18/24 History Allergies Allergy/AdvReac Type Severity Reaction Status Date / Time nickel Allergy Mild redness/irr Verified 08/17/24 13:30 itation Past Med/Surg History Problem List (Updated 08/18/24 @ 00:57 by Aishwarya Markham PA-C) H/O colonoscopy (Acute) Nausea (Acute) Abdominal pain, acute (Acute) Family history of colon cancer Encounter for pre-operative examination Penile bleeding (Acute) Menorrhagia Laceration of thumb (Acute) Hemorrhoids (Acute) Hematochezia (Acute) Encounter for removal of sutures (Acute) Dysplasia of cervix Ankle sprain (Acute) Alcohol overdose (Acute) Medical History Hx gestational diabetes resolved Bipolar disorder Post traumatic stress disorder Anxiety Symptoms consistent with irritable bowel syndrome Surgical History History of colonoscopy History of lumpectomy of left breast benign mass removed History of wisdom tooth extraction History of tonsillectomy History of hysterectomy partial Family History Father Family history of reaction to anesthesia heart rate dropped during colonoscopy Prostate cancer Mother Family hx of colon cancer Colorectal cancer Grandmother (Maternal) Breast cancer Grandfather (Paternal) Myocardial infarction Denies family history of Ovarian cancer Social History (Updated 07/02/22 @ 14:34 by Samira Davidson LPN) Smoking Status: Never smoker Tobacco Type: E-cigarettes / Vaping Cigarettes Per Day: 3 packs a week; Second Hand Exposure: No; Do You Dip or Chew Tobacco: No; Hx Alcohol Use: No Hx Substance Use: Yes Last Used Substance: Days (ago) Last Used Substance Other:: 05/04/19 Substance Use Type Other:: medical card Preferred Language: French Communication Ability: Effective Bench Manager Required: No Beliefs That Will Affect Care: None marital status: Current Living Situation: Significant Other current occupational status: employed Feels Safe at Home: Yes Assistive Devices: Glasses Review of Systems A total of 10 systems reviewed and were otherwise negative Physical Exam Vital Signs Vital Signs - 24 hr 08/17/24 22:09 08/17/24 22:22 08/17/24 22:46 Temperature 36.4 C L 36.4 C L Temperature Source Oral Oral Pulse Rate 63 64 Pulse Rate [Left Finger] 61 Respiratory Rate 20 18 Respiratory Effort / Characteristics Non-Labored Spontaneous Non-Labored Spontaneous Respiratory Depth Normal Respiratory Pattern Blood Pressure 174/83 H Blood Pressure [Left Arm] 173/90 H Blood Pressure Mean 113 Blood Pressure Mean [Left Arm] 117 Blood Pressure Position [Left Arm] Lying Pulse Oximetry 100 100 Oxygen Delivery Method Room Air Room Air Sepsis Recent Fever Within 48 Hours Yes Sepsis New/Unexplained Change in Mental Status No Sepsis Action Taken by Nursing No Action Required 08/17/24 23:24 Temperature Temperature Source Pulse Rate Pulse Rate [Left Finger] 54 L Respiratory Rate 16 Respiratory Effort / Characteristics Non-Labored Respiratory Depth Normal Respiratory Pattern Regular Blood Pressure Blood Pressure [Left Arm] 173/90 H Blood Pressure Mean Blood Pressure Mean [Left Arm] 117 Blood Pressure Position [Left Arm] Pulse Oximetry 97 Oxygen Delivery Method Room Air Sepsis Recent Fever Within 48 Hours Sepsis New/Unexplained Change in Mental Status Sepsis Action Taken by Nursing VITALS: Vitals are noted on the nurse's note and reviewed by myself. Vital signs stable. GENERAL: Pleasant female who appears in pain, in no acute distress, nondiaphoretic, well-developed well-nourished. SKIN: Capillary reflex less than 2 seconds. HEENT: Normocephalic. PERRLA. EOMI. Nares patent. Mucous membranes moist. Neck is supple without nuchal rigidity. HEART: Regular rate and rhythm LUNGS: Clear to auscultation bilaterally without wheezes, rales or rhonchi. No retractions or accessory muscle use. ABDOMEN: Positive bowel sounds x 4. Normal tympanic percussion. Soft, diffusely tender to palpation with increased pain in the lower abdomen, without masses or organomegaly. Alba sign negative. No guarding or rebound tenderness. no CVA tenderness MUSCULOSKELETAL: No gross musculoskeletal defects. NEURO: Patient was alert and oriented to person place and time. No focal neurological deficits. Course Administered Medications Sodium Chloride (Nss) 1,000 mls @ 999 mls/hr IV .Q1H1M ONE Stop: 08/18/24 01:32 Last Admin: 08/18/24 00:36 Dose: 999 mls/hr Documented By: FLORENCIO Discontinued Medications Diphenhydramine HCl (Diphenhydramine 50 Mg/Ml Vial) 25 mg IV NOW STA Stop: 08/17/24 22:22 Last Admin: 08/17/24 22:29 Dose: 25 mg Documented By: FILEMON Acetaminophen (Ofirmev) 1,000 mg in 100 mls @ 400 mls/hr IV NOW STA Stop: 08/17/24 22:35 Last Infusion: 08/17/24 23:30 Dose: Infused Documented By: Admin: 08/17/24 22:29 Dose: 400 mls/hr Documented By: FILEMON Ioversol (Optiray 320 100ml) 95 ml IV ONCE ONE Stop: 08/17/24 22:51 Last Admin: 08/17/24 22:50 Dose: 95 ml Documented By: MICHELLE Lorazepam (Lorazepam 1 Mg/1 Ml Syr Ed Inj Use) 1 mg IV ONE STA Stop: 08/17/24 23:29 Last Admin: 08/17/24 23:47 Dose: 1 mg Documented By: FLORENCIO Morphine Sulfate (Morphine Sulfate 4 Mg/Ml 1 Ml Carp\Vial) 4 mg IV NOW STA Stop: 08/17/24 23:12 Last Admin: 08/17/24 23:15 Dose: 4 mg Documented By: TAWANNA Ondansetron HCl (Ondansetron Inj 2 Mg/Ml 2 Ml Vial) Confirm Administered Dose 4 mg .ROUTE .STK-MED ONE Stop: 08/17/24 22:32 Last Admin: 08/17/24 22:36 Dose: Not Given Documented By: LIZETTE Ondansetron HCl (Ondansetron Inj 2 Mg/Ml 2 Ml Vial) 4 mg IV NOW STA Stop: 08/17/24 22:33 Last Admin: 08/17/24 22:33 Dose: 4 mg Documented By: LIZETTE Potassium Chloride (Potassium Chloride Crtab 20 Meq Tabcr) 40 meq PO NOW STA Stop: 08/17/24 23:29 Last Admin: 08/18/24 00:17 Dose: 40 meq Documented By: FLORENCIO Medical Decision Making Medical Records Attestation: I reviewed the patient's medical records. Home Medications Current Medication List: was personally reviewed by me Laboratory Data Attestation: I reviewed the patient's lab results. 08/17/24 22:19 08/17/24 22:19 Lab Results 08/17/24 08/17/24 08/17/24 Range/Units 22:19 22:26 23:00 WBC 9.68 (4.8-10.8) K/ul RBC 4.98 (4.20-5.40) M/uL Hgb 14.8 (12.0-16.0) g/dl POC Hgb 15.3 (12.0-16.0) g/dl Hct 43.0 (37.0-47.0) % POC Hct 45 (37-47) % MCV 86.3 (80.0-100.0) fL MCH 29.7 (25.0-34.0) pg MCHC 34.4 (32.0-36.0) g/dL RDW Std Deviation 39.9 (36.4-46.3) fL RDW Coeff of Veronica 12.7 (11.5-14.5) % Plt Count 432 H (130-400) K/uL MPV 9.4 (9.4-12.4) fL Immature Gran % (Auto) 0.1 % Neut % (Auto) 44.9 % Lymph % (Auto) 44.6 % Murray % (Auto) 8.7 % Eos % (Auto) 0.7 % Baso % (Auto) 1.0 % Neut # (Auto) 4.34 (1.40-6.50) K/uL Lymph # (Auto) 4.32 H (1.20-3.40) K/uL Murray # (Auto) 0.84 H (0.11-0.59) K/uL Eos # (Auto) 0.07 (0.00-0.50) K/uL Baso # (Auto) 0.10 (0.00-0.20) K/uL Immature Gran # (Auto) 0.01 (0.01-0.20) K/uL POC Sodium 142 (135-144) mmol/L Sodium 139 (136-145) mmol/L POC Potassium 2.9 L (3.3-5.0) mmol/L Potassium 3.0 L (3.5-5.1) mmol/L POC Chloride 103 (101-112) mmol/L Chloride 103 (98-107) mmol/L Carbon Dioxide 22 (21-32) mmol/L POC Total CO2 22 L (24-31) mmol/L Anion Gap 14 H (3-11) POC Anion Gap 21.0 (16-25) mmol/L POC BUN 6 L (7-18) mg/dl BUN 8 (6-23) mg/dl Creatinine 0.72 (0.6-1.2) mg/dl POC Creatinine 0.7 (0.6-1.3) mg/dl Est Cr Clr Drug Dosing Not Reportable eGFR 103.71 BUN/Creatinine Ratio 11.1 (10-20) Glucose 121 H (70-99(Fasting)) mg/dl POC Glucose (other) 127 H (70-99) mg/dl Lactate (0.4-2.0) mmol/L Calcium 10.0 (8.6-10.3) mg/dl POC Ioniz Calcium Pauline 1.10 L (1.12-1.32) mmol/l Magnesium 1.8 (1.7-2.4) mg/dl Total Bilirubin 0.9 (0.2-1.0) mg/dl AST 18 (13-39) U/L ALT 10 (7-52) U/L Alkaline Phosphatase 51 (34-104) U/L Troponin I High Sens 8.3 (0-14) pg/ml Total Protein 7.8 (6.0-8.3) gm/dl Albumin 5.1 H (3.4-5.0) gm/dl Globulin 2.7 (2.5-4.0) gm/dl Albumin/Globulin Ratio 1.9 (0.9-2) TSH 1.831 (0.300-4.500) uIu/ml HCG, Qual Negative (Negative) Adenovirus (PCR) Not Detected (NotDetected) B. pertussis DNA (PCR) Not Detected (NotDetected) B.parapertussis DNA PCR Not Detected (NotDetected) C. pneumoniae DNA (PCR) Not Detected (NotDetected) Coronavirus OC43 (PCR) Not Detected (NotDetected) Coronavirus HKU1 (PCR) Not Detected (NotDetected) Coronavirus 229E (PCR) Not Detected (NotDetected) SARS-CoV-2 (PCR) Not Detected (NotDetected) Coronavirus NL63 (PCR) Not Detected (NotDetected) Human Metapneumovir PCR Not Detected (NotDetected) Influenza Type A (PCR) Not Detected (NotDetected) Influenza Type B (PCR) Not Detected (NotDetected) M. pneumoniae (PCR) Not Detected (NotDetected) Parainfluenza 1 (PCR) Not Detected (NotDetected) Parainfluenza 2 (PCR) Not Detected (NotDetected) Parainfluenza 3 (PCR) Not Detected (NotDetected) Parainfluenza 4 (PCR) Not Detected (NotDetected) RSV (PCR) Not Detected (NotDetected) Entero/Rhino (PCR) Not Detected (NotDetected) 08/17/24 Range/Units 23:45 WBC (4.8-10.8) K/ul RBC (4.20-5.40) M/uL Hgb (12.0-16.0) g/dl POC Hgb (12.0-16.0) g/dl Hct (37.0-47.0) % POC Hct (37-47) % MCV (80.0-100.0) fL MCH (25.0-34.0) pg MCHC (32.0-36.0) g/dL RDW Std Deviation (36.4-46.3) fL RDW Coeff of Veronica (11.5-14.5) % Plt Count (130-400) K/uL MPV (9.4-12.4) fL Immature Gran % (Auto) % Neut % (Auto) % Lymph % (Auto) % Murray % (Auto) % Eos % (Auto) % Baso % (Auto) % Neut # (Auto) (1.40-6.50) K/uL Lymph # (Auto) (1.20-3.40) K/uL Murray # (Auto) (0.11-0.59) K/uL Eos # (Auto) (0.00-0.50) K/uL Baso # (Auto) (0.00-0.20) K/uL Immature Gran # (Auto) (0.01-0.20) K/uL POC Sodium (135-144) mmol/L Sodium (136-145) mmol/L POC Potassium (3.3-5.0) mmol/L Potassium (3.5-5.1) mmol/L POC Chloride (101-112) mmol/L Chloride (98-107) mmol/L Carbon Dioxide (21-32) mmol/L POC Total CO2 (24-31) mmol/L Anion Gap (3-11) POC Anion Gap (16-25) mmol/L POC BUN (7-18) mg/dl BUN (6-23) mg/dl Creatinine (0.6-1.2) mg/dl POC Creatinine (0.6-1.3) mg/dl Est Cr Clr Drug Dosing eGFR BUN/Creatinine Ratio (10-20) Glucose (70-99(Fasting)) mg/dl POC Glucose (other) (70-99) mg/dl Lactate 2.8 H* (0.4-2.0) mmol/L Calcium (8.6-10.3) mg/dl POC Ioniz Calcium Pauline (1.12-1.32) mmol/l Magnesium (1.7-2.4) mg/dl Total Bilirubin (0.2-1.0) mg/dl AST (13-39) U/L ALT (7-52) U/L Alkaline Phosphatase (34-104) U/L Troponin I High Sens (0-14) pg/ml Total Protein (6.0-8.3) gm/dl Albumin (3.4-5.0) gm/dl Globulin (2.5-4.0) gm/dl Albumin/Globulin Ratio (0.9-2) TSH (0.300-4.500) uIu/ml HCG, Qual (Negative) Adenovirus (PCR) (NotDetected) B. pertussis DNA (PCR) (NotDetected) B.parapertussis DNA PCR (NotDetected) C. pneumoniae DNA (PCR) (NotDetected) Coronavirus OC43 (PCR) (NotDetected) Coronavirus HKU1 (PCR) (NotDetected) Coronavirus 229E (PCR) (NotDetected) SARS-CoV-2 (PCR) (NotDetected) Coronavirus NL63 (PCR) (NotDetected) Human Metapneumovir PCR (NotDetected) Influenza Type A (PCR) (NotDetected) Influenza Type B (PCR) (NotDetected) M. pneumoniae (PCR) (NotDetected) Parainfluenza 1 (PCR) (NotDetected) Parainfluenza 2 (PCR) (NotDetected) Parainfluenza 3 (PCR) (NotDetected) Parainfluenza 4 (PCR) (NotDetected) RSV (PCR) (NotDetected) Entero/Rhino (PCR) (NotDetected) Imaging Data Attestation: I personally reviewed and interpreted this imaging study as follows: Radiologist's Impression: Abdomen/Pelvis CT 08/17/24 22:20 Exam(s): CT ABDOMEN + PELVIS With Contrast IV Amt: 95 ml opti 320 EXAM: CT Abdomen and Pelvis With Intravenous Contrast CLINICAL HISTORY: Reason for exam: severe pain, fever, colonoscopy today w/ polyp rem. TECHNIQUE: Axial computed tomography images of the abdomen and pelvis with intravenous contrast. CTDI is 13.96 mGy and DLP is 618.87 mGy-cm. Automated exposure control was utilized for the study. A dose lowering technique was utilized adhering to the principles of ALARA. CONTRAST: Patient received 95 ml opti 320 of IV contrast COMPARISON: 05/28/22 FINDINGS: Lung bases: Unremarkable. ABDOMEN: Liver: Unremarkable. No mass. Gallbladder and bile ducts: Unremarkable. No calcified stones. No ductal dilation. Pancreas: Unremarkable. No mass. No ductal dilation. Spleen: Unremarkable. No splenomegaly. Adrenals: Unremarkable. No mass. Kidneys and ureters: Unremarkable. No solid mass. No hydronephrosis. Stomach and bowel: Unremarkable. No obstruction. No mucosal thickening. No active gastrointestinal bleeding identified. PELVIS: Appendix: Normal appendix. Bladder: Unremarkable. No mass. Reproductive: Hysterectomy. ABDOMEN and PELVIS: Intraperitoneal space: Unremarkable. No free air, significant free fluid, or fluid collection. Bones/joints: No acute fracture. No dislocation. Soft tissues: Unremarkable. Vasculature: Unremarkable. No abdominal aortic aneurysm. Lymph nodes: Unremarkable. No enlarged lymph nodes. IMPRESSION: No active gastrointestinal bleeding identified. No acute findings. Electronically signed by: Zabrina Sommer M.D. 08/17/24 23:14 PM [facility] Narrative Prior records/ancillary studies reviewed. Triage Nursing notes reviewed. Additional history obtained from nursing. The patient's history was concerning for subjective fever and chills and abdominal pain after colonoscopy today Differential diagnosis: Etiologies such as colonoscopy complication, side effect anesthesia, appendicitis, diverticulitis, PUD, biliary pathology, UTI, pancreatitis, obstruction, mesenteric ischemia, aortic pathology, infections, inflammatory bowel disease, renal colic, as well as others were entertained. Physical examination findings: As above. ER treatment provided: An order was placed for continuous cardiac monitoring. The monitor shows a rate of 60-100 with a sinus rhythm per my Independent interpretation. Tylenol, Zofran and Benadryl ordered. I-STAT was ordered patient was sent down for CT On reassessment the patient felt better. Diagnostics interpreted by me: ECG: Ordered for weakness EKG: Normal sinus, possible U wave, rate of 48. Impression sinus bradycardia independent interpreted by myself The labs Independently Interpreted by myself revealed elevated lactic and repeat was ordered Hypokalemia this is replaced orally, negative BioFire Normal magnesium Imaging studies: Chest x-ray with no acute consolidation, pneumothorax or free air per my independent interpretation CT was reviewed and read by radiology. Negative for acute findings Consultation: A consultation was placed with the hospitalist. The case was discussed and diagnostics were reviewed. The patient was evaluated in the ER for further treatment. Exam and history seem consistent with nausea vomiting with subjective fever and chills abdominal pain from colonoscopy today. Symptoms most likely related to anesthesia. Patient was still symptomatic despite multiple rounds of medications. Imaging was negative. Medicine was consulted case discussed. Patient be admitted to the medical service. CT scan was negative. X-ray was clear. No urine infection. Negative BioFire. By the evaluation outlined above emergent etiologies such as appendicitis, diverticulitis, PUD, biliary pathology, UTI, pancreatitis, obstruction, mesenteric ischemia, aortic pathology, infections, inflammatory bowel disease, renal colic, as well as others were deemed relatively unlikely. The pt informed about the findings as listed above. All questions were answered and pleased with the treatment. The chart was completed utilizing [employer] voice recognition software. Grammatical errors, random word insertions, pronoun errors, and incomplete sentences are an occassional consequence of this system due to software limitations, ambient noise, and hardware issues. Any formal questions or concerns about the content, text, or information contained within the body of this dictation should be directly addressed to the physician outpatient physical therapist assistant for clarification. Impression & Plan Abdominal pain, acute, Nausea, H/O colonoscopy Discharge Plan Visit Data Chief Complaint: Fever Stated Complaint: COLONOSCOPY,FEVER,VOMITING,NAUSEA,ABD PAIN ED Provider: [place] [facility] Midlevel Provider: Aishwarya Markham Discharge Problem: Abdominal pain, acute, Nausea, H/O colonoscopy Patient Disposition: Admitted As Inpatient Condition: Good Forms Stand Alone Forms: My [facility] [employer] Prescriptions Prescriptions: No Action quetiapine 100 mg tablet 100 mg PO HS cholecalciferol (vitamin D3) [Vitamin D3] 50 mcg (2,000 unit) Capsule 50 mcg PO DAILY triamcinolone acetonide [Nasacort] 55 mcg Aerosol,Cicero 1 spray INTRANASAL DAILY Rx Instructions: administer into each nostril Medical Marijuana 1 dose PO DAILY sertraline 50 mg tablet 50 mg PO DAILY Referrals Referrals: Charity Barraza DO [Primary Care Provider] -
[2024-08-17] MEDS: ACETAMINOPHEN 1,000 MG/100 ML VIAL IV STA (22:29)
[2024-08-17] MEDS: diphenhydrAMINE 50 MG/ML VIAL IV STA (22:29)
[2024-08-17] MEDS: ONDANSETRON INJ 2 MG/ML 2 ML VIAL IV STA (22:33)
[2024-08-17] MEDS: ONDANSETRON INJ 2 MG/ML 2 ML VIAL ONE (22:36)
[2024-08-17 22:38] LABS: iSTAT Creatinine 0.7 mg/dl (0.6-1.3); iSTAT Hemoglobin 15.3 g/dl (12.0-16.0); iSTAT Ionized Calcium 1.1 mmol/l (1.12-1.32); iSTAT Potassium 2.9 mmol/L (3.3-5.0)
[2024-08-17 22:39] LABS: Eosinophils # (auto) 0.07 K/uL (0.00-0.50); Eosinophils % (auto) 0.7 %; Hemoglobin 14.8 g/dl (12.0-16.0); Immature Granulocytes # (auto) 0.01 K/uL (0.01-0.20); Immature Granulocytes % (auto) 0.1 %; Lymphocytes # (auto) 4.32 K/uL (1.20-3.40); Lymphocytes % (auto) 44.6 %; Mean Corpuscular Hemoglobin 29.7 pg (25.0-34.0); Mean Corpuscular Hgb Conc 34.4 g/dL (32.0-36.0); Mean Corpuscular Volume 86.3 fL (80.0-100.0); Mean Platelet Volume 9.4 fL (9.4-12.4); Monocytes # (auto) 0.84 K/uL (0.11-0.59); Monocytes % (auto) 8.7 %; Neutrophils # (auto) 4.34 K/uL (1.40-6.50); Neutrophils % (auto) 44.9 %; Platelet Count 432 K/uL (130-400); RDW Coefficient of Variation 12.7 % (11.5-14.5); RDW Standard Deviation 39.9 fL (36.4-46.3); Red Blood Count 4.98 M/uL (4.20-5.40); White Blood Count 9.68 K/ul (4.8-10.8)
[2024-08-17] MEDS: OPTIRAY 320 100ml IV ONE (22:50)
[2024-08-17 22:56] LABS: Pregnancy Test, Serum Negative (Negative)
[2024-08-17 22:57] LABS: Alanine Aminotransferase 10 U/L (7-52); Albumin Globulin Ratio 1.9 (0.9-2); Albumin Level 5.1 gm/dl (3.4-5.0); Alkaline Phosphatase 51 U/L (34-104); Anion Gap 14 (3-11); Aspartate Aminotransferase 18 U/L (13-39); BUN Creatinine Ratio 11.1 (10-20); Bilirubin,Total 0.9 mg/dl (0.2-1.0); Blood Urea Nitrogen 8 mg/dl (6-23); Carbon Dioxide 22 mmol/L (21-32); Chloride 103 mmol/L (98-107); Globulin 2.7 gm/dl (2.5-4.0); Glucose 121 mg/dl (70-99(Fasting)); Magnesium 1.8 mg/dl (1.7-2.4); Sodium 139 mmol/L (136-145); Total Protein 7.8 gm/dl (6.0-8.3)
[2024-08-17 23:05] LABS: Troponin I High Sensitivity 8.3 pg/ml (0-14)
[2024-08-17 23:14] LABS: Thyroid Stimulating Hormone 1.831 uIu/ml (0.300-4.500)
[2024-08-17] MEDS: MoRPHine SULFATE 4 MG/ML 1 ML CARP\\VIAL IV STA (23:15)
--- NOTE | 2024-08-17 23:15 | CT Scan Report ---
Exam(s): CT ABDOMEN + PELVIS With Contrast IV Amt: 95 ml opti 320 EXAM: CT Abdomen and Pelvis With Intravenous Contrast CLINICAL HISTORY: Reason for exam: severe pain, fever, colonoscopy today w/ polyp rem. TECHNIQUE: Axial computed tomography images of the abdomen and pelvis with intravenous contrast. CTDI is 13.96 mGy and DLP is 618.87 mGy-cm. Automated exposure control was utilized for the study. A dose lowering technique was utilized adhering to the principles of ALARA. CONTRAST: Patient received 95 ml opti 320 of IV contrast COMPARISON: 05/28/22 FINDINGS: Lung bases: Unremarkable. ABDOMEN: Liver: Unremarkable. No mass. Gallbladder and bile ducts: Unremarkable. No calcified stones. No ductal dilation. Pancreas: Unremarkable. No mass. No ductal dilation. Spleen: Unremarkable. No splenomegaly. Adrenals: Unremarkable. No mass. Kidneys and ureters: Unremarkable. No solid mass. No hydronephrosis. Stomach and bowel: Unremarkable. No obstruction. No mucosal thickening. No active gastrointestinal bleeding identified. PELVIS: Appendix: Normal appendix. Bladder: Unremarkable. No mass. Reproductive: Hysterectomy. ABDOMEN and PELVIS: Intraperitoneal space: Unremarkable. No free air, significant free fluid, or fluid collection. Bones/joints: No acute fracture. No dislocation. Soft tissues: Unremarkable. Vasculature: Unremarkable. No abdominal aortic aneurysm. Lymph nodes: Unremarkable. No enlarged lymph nodes. IMPRESSION: No active gastrointestinal bleeding identified. No acute findings. Electronically signed by: Zabrina Sommer M.D. 08/17/24 23:14 PM
[2024-08-17] MEDS: LORazepam 1 MG/1 ML SYR ED Inj Use IV STA (23:47)
[2024-08-17 23:56] LABS: Adenovirus PCR Not Detected (NotDetected); Bordetella parapertussis PCR Not Detected (NotDetected); Bordetella pertussis PCR Not Detected (NotDetected); Chlamydia pneumoniae PCR Not Detected (NotDetected); Coronavirus 229E PCR Not Detected (NotDetected); Coronavirus CoV-2 (COVID19)PCR Not Detected (NotDetected); Coronavirus HKU1 PCR Not Detected (NotDetected); Coronavirus NL63 PCR Not Detected (NotDetected); Coronavirus OC43PCR Not Detected (NotDetected); Human Metapneumovirus PCR Not Detected (NotDetected); Influenza A PCR Not Detected (NotDetected); Influenza B PCR Not Detected (NotDetected); Mycoplasma pneumoniae PCR Not Detected (NotDetected); Parainfluenza Virus 1 PCR Not Detected (NotDetected); Parainfluenza Virus 2 PCR Not Detected (NotDetected); Parainfluenza Virus 3 PCR Not Detected (NotDetected); Parainfluenza Virus 4 PCR Not Detected (NotDetected); Respiratory Syncytial VirusPCR Not Detected (NotDetected); Rhinovirus/Enterovirus PCR Not Detected (NotDetected)
[2024-08-18] MEDS: POTASSIUM CHLORIDE CRTAB 20 MEQ TABCR PO STA (00:17)
[2024-08-18] MEDS: SODIUM CHLORIDE 0.9% 1,000 ML IV ONE (00:36)
--- NOTE | 2024-08-18 02:10 | History & Physical Report ---
Date of Service August 18, 2024 Assessment & Plan (1) Abdominal pain, acute: Plan: 49-year-old female with past medical history significant for prediabetes, bipolar 1 disorder comes because of nausea /vomiting and abdominal pain and feeling cold. Patient had colonoscopy earlier. 2 polyps were removed. Patient states after going home initially felt dizzy and nausea. After some time symptoms subsided. Then she ate some food after which stomach became very upset. She had several episodes of nausea and vomiting. Had severe abdominal pain. [place] very cold and clammy and came to the ER. Received pain meds and antiemetics in ER. Currently abdominal pain is improved. Patient states earlier she had some chest discomfort that got resolved now. Currently no headache. Vision is okay. Has some runny nose. No sore throat. Has some cough. Denies shortness of breath. Afebrile. Denies any blood in the stools. Not micturating much. Hemodynamics are okay. Somewhat restless. Acute abdominal pain Nausea and vomiting Chills and sweating Post colonoscopy and 2 polyps removed in the sigmoid colon. No bleeding CT abdomen pelvis is okay Initial lactic acid is 2.8 No leukocytosis, afebrile LFTs okay. Abdominal pain improved with pain meds Will keep her n.p.o. IV fluids IV antiemetics as needed IV pain meds as needed Empiric Zosyn Follow UA and blood culture Follow repeat lactic acid and labs Consult GI in a.m. for further recommendation Close monitor Hypokalemia Will replace Follow labs Bradycardia Restless Could be from meds Will monitor in med telemetry Mild chest discomfort resolved will follow serial ce and echo if any concern will consult cardiology Bipolar 1 disorder Continue home medications Prediabetes Will follow HbA1c levels DVT prophylaxis SCDs for now Disposition Med/telemetry Full code. History of Present Illness Chief Complaint: Nausea vomiting and abdominal pain Primary Care Provider: Charity Barraza DO 49-year-old female with past medical history significant for prediabetes, bipolar 1 disorder comes because of nausea /vomiting and abdominal pain and feeling cold. Patient had colonoscopy earlier. 2 polyps were removed. Patient states after going home initially felt dizzy and nausea. After some time symptoms subsided. Then she ate some food after which stomach became very upset. She had several episodes of nausea and vomiting. Had severe abdominal pain. [place] very cold and clammy and came to the ER. Received pain meds and an tiemetics in ER. Currently abdominal pain is improved. Patient states earlier she had some chest discomfort that got resolved now. Currently no headache. Vision is okay. Has some runny nose. No sore throat. Has some cough. Denies shortness of breath. Afebrile. Denies any blood in the stools. Not micturating much. Hemodynamics are okay. Somewhat restless. Past medical history. As mentioned above Past surgical history. Left breast lesion excision. Partial hysterectomy. Tonsillectomy. Social history. Smokes 0.1 packs a day for 12 years. Alcohol 2-3 times a week per epic. Smokes marijuana. Family history. Maternal grandmother had breast cancer. Father had hypercholesterolemia. Hypertension. Paternal grandfather of MA at age 59. Allergies Allergy/AdvReac Type Severity Reaction Status Date / Time nickel Allergy Mild redness/irr Verified 08/17/24 13:30 itation Home Medications Medication Instructions Recorded Confirmed Type cholecalciferol (vitamin D3) 50 50 mcg PO DAILY 05/28/22 08/18/24 History mcg (2,000 unit) capsule (Vitamin D3) quetiapine 100 mg tablet 100 mg PO HS 05/28/22 08/18/24 History Medical Marijuana 1 dose PO DAILY 08/05/24 08/18/24 History triamcinolone acetonide 55 mcg 1 spray intranasal DAILY 08/05/24 08/18/24 History nasal spray aerosol (Nasacort) sertraline 50 mg tablet 50 mg PO DAILY 08/18/24 08/18/24 History Past Med/Surg History Problem List (Updated 08/18/24 @ 00:57 by Aishwarya Markham PA-C) H/O colonoscopy (Acute) Nausea (Acute) Abdominal pain, acute (Acute) Family history of colon cancer Encounter for pre-operative examination Penile bleeding (Acute) Menorrhagia Laceration of thumb (Acute) Hemorrhoids (Acute) Hematochezia (Acute) Encounter for removal of sutures (Acute) Dysplasia of cervix Ankle sprain (Acute) Alcohol overdose (Acute) Medical History Hx gestational diabetes resolved Bipolar disorder Post traumatic stress disorder Anxiety Symptoms consistent with irritable bowel syndrome Surgical History History of colonoscopy History of lumpectomy of left breast benign mass removed History of wisdom tooth extraction History of tonsillectomy History of hysterectomy partial Family History Father Family history of reaction to anesthesia heart rate dropped during colonoscopy Prostate cancer Mother Family hx of colon cancer Colorectal cancer Grandmother (Maternal) Breast cancer Grandfather (Paternal) Myocardial infarction Denies family history of Ovarian cancer Social History (Updated 07/02/22 @ 14:34 by Samira Davidson LPN) Smoking Status: Current every day smoker Tobacco Type: Cigarettes and E-cigarettes / Vaping Cigarettes Per Day: 3 packs a week; Second Hand Exposure: No; Do You Dip or Chew Tobacco: No; Hx Alcohol Use: No Hx Substance Use: No Preferred Language: Maori Communication Ability: Effective Economic Development Specialist Required: No Beliefs That Will Affect Care: None marital status: Current Living Situation: Significant Other current occupational status: employed Other Information That Helps Us Care for You: No Feels Safe at Home: Yes Safety Concerns: Feels Safe At This Time Assistive Devices: None Review of Systems Review of Systems: All systems reviewed & are unremarkable except as noted in HPI & below Physical Exam Physical Exam: General- Not in distress Head- atraumatic Eyes- PERRL. ENT- oropharynx clear Neck- supple, no JVD. Lungs- clear to auscultation no wheezing or crackles Heart- regular rate and rhythm; no murmur, no gallop. Abdomen- normal bowel sounds, soft, mild diffuse discomfort , no distension. Extremities- no pretibial edema, no erythema seen. Neuro- alert, oriented , restless, PERRL, no facial palsy; no dysarthria; moves extremities Results & Data Results & Data Vital Signs (Past 12 Hours) Vital Signs Temp Pulse Pulse Resp BP BP Pulse Ox 08/18/24 01:23 58 L 16 173/90 H 100 08/17/24 23:24 54 L 16 173/90 H 97 08/17/24 22:46 36.4 C L 61 18 173/90 H 100 08/17/24 22:22 64 08/17/24 22:09 36.4 C L 63 20 174/83 H 100 O2 Del Method 08/18/24 01:23 Room Air 08/17/24 23:24 Room Air 08/17/24 22:46 Room Air 08/17/24 22:22 08/17/24 22:09 Room Air Diagnostic Findings Laboratory Results WBC 9.68 K/ul (4.8-10.8) 08/17/24 22:19 RBC 4.98 M/uL (4.20-5.40) 08/17/24 22:19 Hgb 14.8 g/dl (12.0-16.0) 08/17/24 22:19 POC Hgb 15.3 g/dl (12.0-16.0) 08/17/24 22: Hct 43.0 % (37.0-47.0) 08/17/24 22:19 POC Hct 45 % (37-47) 08/17/24 22:26 MCV 86.3 fL (80.0-100.0) 08/17/24 22:19 MCH 29.7 pg (25.0-34.0) 08/17/24 22:19 MCHC 34.4 g/dL (32.0-36.0) 08/17/24 22:19 RDW Std Deviation 39.9 fL (36.4-46.3) 08/17/24 22:19 RDW Coeff of Veronica 12.7 % (11.5-14.5) 08/17/24 22:19 Plt Count 432 K/uL (130-400) H 08/17/24 22:19 MPV 9.4 fL (9.4-12.4) 08/17/24 22:19 Immature Gran % (Auto) 0.1 % 08/17/24 22:19 Neut % (Auto) 44.9 % 08/17/24 22:19 Lymph % (Auto) 44.6 % 08/17/24 22:19 [place] % (Auto) 8.7 % 08/17/24 22:19 Eos % (Auto) 0.7 % 08/17/24 22:19 Baso % (Auto) 1.0 % 08/17/24 22:19 Neut # (Auto) 4.34 K/uL (1.40-6.50) 08/17/24 22:19 Lymph # (Auto) 4.32 K/uL (1.20-3.40) H 08/17/24 22:19 [place] # (Auto) 0.84 K/uL (0.11-0.59) H 08/17/24 22:19 Eos # (Auto) 0.07 K/uL (0.00-0.50) 08/17/24 22:19 Baso # (Auto) 0.10 K/uL (0.00-0.20) 08/17/24 22:19 Immature Gran # (Auto) 0.01 K/uL (0.01-0.20) 08/17/24 22:19 POC Sodium 142 mmol/L (135-144) 08/17/24 22:26 Sodium 139 mmol/L (136-145) 08/17/24 22:19 POC Potassium 2.9 mmol/L (3.3-5.0) L 08/17/24 22:26 Potassium 3.0 mmol/L (3.5-5.1) L 08/17/24 22:19 POC Chloride 103 mmol/L (101-112) 08/17/24 22:26 Chloride 103 mmol/L (98-107) 08/17/24 22:19 Carbon Dioxide 22 mmol/L (21-32) 08/17/24 22:19 POC Total CO2 22 mmol/L (24-31) L 08/17/24 22:26 Anion Gap 14 (3-11) H 08/17/24 22:19 POC Anion Gap 21.0 mmol/L (16-25) 08/17/24 22:26 POC BUN 6 mg/dl (7-18) L 08/17/24 22:26 BUN 8 mg/dl (6-23) 08/17/24 22:19 Creatinine 0.72 mg/dl (0.6-1.2) 08/17/24 22:19 POC Creatinine 0.7 mg/dl (0.6-1.3) 08/17/24 22:26 Est Cr Clr Drug Dosing Not Reportable 08/17/24 22:19 eGFR 103.71 08/17/24 22:19 BUN/Creatinine Ratio 11.1 (10-20) 08/17/24 22:19 Glucose 121 mg/dl (70-99(Fasting)) H 08/17/24 22:19 POC Glucose (other) 127 mg/dl (70-99) H 08/17/24 22:26 Lactate 2.8 mmol/L (0.4-2.0) H* 08/17/24 23:45 Calcium 10.0 mg/dl (8.6-10.3) 08/17/24 22:19 POC Ioniz Calcium [place] 1.10 mmol/l (1.12-1.32) L 08/17/24 22:26 Magnesium 1.8 mg/dl (1.7-2.4) 08/17/24 22:19 Total Bilirubin 0.9 mg/dl (0.2-1.0) 08/17/24 22:19 AST 18 U/L (13-39) 08/17/24 22:19 ALT 10 U/L (7-52) 08/17/24 22:19 Alkaline Phosphatase 51 U/L (34-104) 08/17/24 22:19 Troponin I High Sens 8.3 pg/ml (0-14) 08/17/24 22:19 Total Protein 7.8 gm/dl (6.0-8.3) 08/17/24 22:19 Albumin 5.1 gm/dl (3.4-5.0) H 08/17/24 22:19 Globulin 2.7 gm/dl (2.5-4.0) 08/17/24 22:19 Albumin/Globulin Ratio 1.9 (0.9-2) 08/17/24 22:19 TSH 1.831 uIu/ml (0.300-4.500) 08/17/24 22:19 HCG, Qual Negative (Negative) 08/17/24 22:19 Adenovirus (PCR) Not Detected (NotDetected) 08/17/24 23:00 B. pertussis DNA (PCR) Not Detected (NotDetected) 08/17/24 23:00 B.parapertussis DNA PCR Not Detected (NotDetected) 08/17/24 23:00 Lyme Disease Screen Negative (Negative) 08/17/24 22:19 C. pneumoniae DNA (PCR) Not Detected (NotDetected) 08/17/24 23:00 Coronavirus OC43 (PCR) Not Detected (NotDetected) 08/17/24 23:00 Coronavirus HKU1 (PCR) Not Detected (NotDetected) 08/17/24 23:00 Coronavirus 229E (PCR) Not Detected (NotDetected) 08/17/24 23:00 SARS-CoV-2 (PCR) Not Detected (NotDetected) 08/17/24 23:00 Coronavirus NL63 (PCR) Not Detected (NotDetected) 08/17/24 23:00 Human Metapneumovir PCR Not Detected (NotDetected) 08/17/24 23:00 Influenza Type A (PCR) Not Detected (NotDetected) 08/17/24 23:00 Influenza Type B (PCR) Not Detected (NotDetected) 08/17/24 23:00 M. pneumoniae (PCR) Not Detected (NotDetected) 08/17/24 23:00 Parainfluenza 1 (PCR) Not Detected (NotDetected) 08/17/24 23:00 Parainfluenza 2 (PCR) Not Detected (NotDetected) 08/17/24 23:00 Parainfluenza 3 (PCR) Not Detected (NotDetected) 08/17/24 23:00 Parainfluenza 4 (PCR) Not Detected (NotDetected) 08/17/24 23:00 RSV (PCR) Not Detected (NotDetected) 08/17/24 23:00 Entero/Rhino (PCR) Not Detected (NotDetected) 08/17/24 23:00 Impressions Abdomen/Pelvis CT 08/17/24 22:20 Exam(s): CT ABDOMEN + PELVIS With Contrast IV Amt: 95 ml opti 320 EXAM: CT Abdomen and Pelvis With Intravenous Contrast CLINICAL HISTORY: Reason for exam: severe pain, fever, colonoscopy today w/ polyp rem. TECHNIQUE: Axial computed tomography images of the abdomen and pelvis with intravenous contrast. CTDI is 13.96 mGy and DLP is 618.87 mGy-cm. Automated exposure control was utilized for the study. A dose lowering technique was utilized adhering to the principles of ALARA. CONTRAST: Patient received 95 ml opti 320 of IV contrast COMPARISON: 05/28/22 FINDINGS: Lung bases: Unremarkable. ABDOMEN: Liver: Unremarkable. No mass. Gallbladder and bile ducts: Unremarkable. No calcified stones. No ductal dilation. Pancreas: Unremarkable. No mass. No ductal dilation. Spleen: Unremarkable. No splenomegaly. Adrenals: Unremarkable. No mass. Kidneys and ureters: Unremarkable. No solid mass. No hydronephrosis. Stomach and bowel: Unremarkable. No obstruction. No mucosal thickening. No active gastrointestinal bleeding identified. PELVIS: Appendix: Normal appendix. Bladder: Unremarkable. No mass. Reproductive: Hysterectomy. ABDOMEN and PELVIS: Intraperitoneal space: Unremarkable. No free air, significant free fluid, or fluid collection. Bones/joints: No acute fracture. No dislocation. Soft tissues: Unremarkable. Vasculature: Unremarkable. No abdominal aortic aneurysm. Lymph nodes: Unremarkable. No enlarged lymph nodes. IMPRESSION: No active gastrointestinal bleeding identified. No acute findings. Electronically signed by: Zabrina Sommer M.D. 08/17/24 23:14 PM ECG Additional Comments: ECG. Sinus bradycardia with sinus arrhythmia at rate of 48. QTc 453. Code Status & VTE Plan VTE Prophylaxis Plan VTE Prophylaxis will be ordered: Yes
[2024-08-18] MEDS: POTASSIUM CHLORIDE / WTR 10 MEQ/100 ML PLCT IV SCH (02:18)
[2024-08-18] MEDS ORDERED: ACETAMINOPHEN 325 MG TAB PO PRN (02:52)
[2024-08-18] MEDS ORDERED: NITROGLYCERIN SL 0.4 MG/TAB TAB SL PRN (02:52)
[2024-08-18] MEDS: MoRPHine SULFATE 4 MG/ML 1 ML CARP\\VIAL IV PRN (04:22)
[2024-08-18] MEDS: ONDANSETRON INJ 2 MG/ML 2 ML VIAL IV PRN (04:22)
[2024-08-18] MEDS: PIPERACILLIN/TAZOBACTAM 4.5 GM/100 ML BAG IV STA (04:45)
[2024-08-18] MEDS: D5W AND NSS 1,000 ML IV SCH (05:12)
--- NOTE | 2024-08-18 06:52 | XRay Report ---
XR chest 1V portable CLINICAL HISTORY: colonoscopy, severe pain TECHNIQUE: Single frontal radiograph of the chest was obtained. Comparison: Comparison is made to chest and abdomen radiograph 05/28/2022 FINDINGS: No lines and tubes are seen. The cardiomediastinal silhouette is normal. The lungs are clear. No evid ence of pleural effusion or pneumothorax. IMPRESSION: No acute chest disease. ACT 112: Negative or not required by law. Electronically signed by: Zachary Madrigal M.D. 08/18/2024 6:51 AM
[2024-08-18 07:23] LABS: Hematocrit (blood only) 40.3 % (37.0-47.0); Hemoglobin 13.7 g/dl (12.0-16.0); Mean Corpuscular Hemoglobin 30.2 pg (25.0-34.0); Mean Platelet Volume 9.8 fL (9.4-12.4); Platelet Count 342 K/uL (130-400); RDW Coefficient of Variation 12.6 % (11.5-14.5); RDW Standard Deviation 41.3 fL (36.4-46.3); Red Blood Count 4.53 M/uL (4.20-5.40); White Blood Count 12.23 K/ul (4.8-10.8)
[2024-08-18 07:37] LABS: BUN Creatinine Ratio 8.9 (10-20); Calcium 8.5 mg/dl (8.6-10.3); Creatinine Clr Calc Pharmacy 93.7 ml/min; Magnesium 1.3 mg/dl (1.7-2.4); Potassium 3.8 mmol/L (3.5-5.1)
[2024-08-18 07:47] LABS: Basophils # (auto) 0.02 K/uL (0.00-0.20); Basophils % (auto) 0.2 %; Immature Granulocytes # (auto) 0.04 K/uL (0.01-0.20); Immature Granulocytes % (auto) 0.3 %; Lymphocytes # (auto) 0.85 K/uL (1.20-3.40); Monocytes # (auto) 0.22 K/uL (0.11-0.59); Monocytes % (auto) 1.8 %; Neutrophils % (auto) 90.7 %; RBC Morphology Unremarkable
[2024-08-18 08:30] LABS: Estimated Average Glucose 120 mg/dl; Hemoglobin A1C 5.8 % (4.5-5.6)
[2024-08-18] MEDS: PIPERACILLIN/TAZOBACTAM 4.5 GM/100 ML BAG IV SCH (08:37)
[2024-08-18] MEDS: CHOLECALCIFEROL 25 MCG (1000 UNITS) TAB PO SCH (08:38)
[2024-08-18] MEDS: FLUTICASONE PROPIONATE NA SPR 16 GM BTL SCH (08:38)
[2024-08-18] MEDS: SERTRALINE HCL 50 MG TABLET PO SCH (08:38)
[2024-08-18 08:49] LABS: Appearance Urine Clear (Clear); Bilirubin Urine Negative (Negative); Blood Urine Negative (Negative); Color Urine Yellow; Glucose Urine UA 1+ (Negative); Ketones Urine 3+ (Negative); Leukocyte Esterase Urine Negative (Negative); Nitrite Urine Negative (Negative); Protein Urine Negative (Negative); Specific Gravity Urine 1.021 (1.000-1.030); Urobilinogen Urine Negative (Negative); pH Urine 7.5 (4.5-7.5)
[2024-08-18] MEDS: PROMETHAZINE 6.25 MG/50.25 ML BAG IV ONE (09:08)
[2024-08-18] MEDS: MAGNESIUM SULFATE / D5W 1 GM/100 ML BAG IV SCH (09:43)
[2024-08-18] MEDS: LACTATED RINGER'S 1,000 ML IV SCH (09:43)
--- NOTE | 2024-08-18 11:59 | Electrocardiogram Report ---
Test Reason : Blood Pressure : */* mmHG Vent. Rate : 48 BPM Atrial Rate : 48 BPM P-R Int : 124 ms QRS Dur : 94 ms QT Int : 508 ms P-R-T Axes : * 31 37 degrees QTcB Int : 453 ms Sinus bradycardia with sinus arrhythmia Otherwise normal ECG No previous ECGs available Confirmed by Zana Devine ([id number]) on 08/18/2024 11:58:54 AM Referred By: REFERRED SELF Confirmed By: Zana Devine
--- NOTE | 2024-08-18 12:03 | Gastrointestinal Consultation ---
Date of Consultation August 18, 2024 Assessment & Plan (1) Nausea: (2) Abdominal pain, acute: Plan Symptoms began after anesthesia/colonoscopy on 08/17/24. No obvious GI abnormalities in labs, stool studies, & CT abdomen imaging. -Troponin bumped to 23. EKG with bradycardia. Would advise cycling cardiac enzymes and further evaluation per hospitalist team -Mg replacement & antiemetics prn -Check Lipase Supervising Physician Co-Signing Physician Notes I examined the patient and reviewed patient's chart , laboratory data and imaging studies. I agree with with assessment and plan of care as suggested by advanced practice provider. I do not believe symptoms are related to uneventful colonoscopy that was performed yesterday without difficulties. Elevated troponin for which cardiology consultation was requested. History of Present Illness Reason for Consultation: Nausea, vomiting, abdominal discomfort Attending Physician: Bijan Patel MD History of Present Illness Patient is a 49 yo female with PMH of prediabetes and bipolar disorder. She had a colonoscopy on 08/17/24 with removal of 2 small polyps. She notes that she felt disoriented and dizzy when she left the hospital and states that she was nauseated. She felt like things were getting better when she got home, but then she ate solid food and felt nauseated again. She had several episodes of vomiting. She notes she had severe abdominal pain. In the ED, she had a CT abdomen/pelvis without GI abnormality. H/H appropriate. LFTs normal. Stool PCR negative. Patient did have a bumped troponin to 23.0 this AM. EKG with sinus bradycardia. Mg 1.3. Allergies Allergy/AdvReac Type Severity Reaction Status Date / Time nickel Allergy Mild redness/irr Verified 08/17/24 13:30 itation Home Medications Medication Instructions Recorded Confirmed Type cholecalciferol (vitamin D3) 50 50 mcg PO DAILY 05/28/22 08/18/24 History mcg (2,000 unit) capsule (Vitamin D3) quetiapine 100 mg tablet 100 mg PO HS 05/28/22 08/18/24 History Medical Marijuana 1 dose PO DAILY 08/05/24 08/18/24 History triamcinolone acetonide 55 mcg 1 spray intranasal DAILY 08/05/24 08/18/24 History nasal spray aerosol (Nasacort) sertraline 50 mg tablet 50 mg PO DAILY 08/18/24 08/18/24 History Patient History Medical History Hx gestational diabetes resolved Bipolar disorder Post traumatic stress disorder Anxiety Symptoms consistent with irritable bowel syndrome Surgical History History of colonoscopy History of lumpectomy of left breast benign mass removed History of wisdom tooth extraction History of tonsillectomy History of hysterectomy partial Family History Father Family history of reaction to anesthesia heart rate dropped during colonoscopy Prostate cancer Mother Family hx of colon cancer Colorectal cancer Grandmother (Maternal) Breast cancer Grandfather (Paternal) Myocardial infarction Denies family history of Ovarian cancer Social History Smoking Status: Current every day smoker Tobacco Type: Cigarettes and E-cigarettes / Vaping Cigarettes Per Day: 3 packs a week; Second Hand Exposure: No; Do You Dip or Chew Tobacco: No; Hx Alcohol Use: No Hx Substance Use: No Preferred Language: Kazakh Communication Ability: Effective Stress Analyst Required: No Beliefs That Will Affect Care: None marital status: Current Living Situation: Significant Other current occupational status: employed Other Information That Helps Us Care for You: No Feels Safe at Home: Yes Safety Concerns: Feels Safe At This Time Assistive Devices: None Review of Systems Constitutional: no fever and no chills Respiratory: no cough and no dyspnea Cardiovascular: no chest pain Gastrointestinal: + abdominal pain, + nausea and + vomitin g improving Physical Exam Constitutional: well developed; no acute distress Respiratory: normal respiratory effort, lungs clear to auscultation Cardiovascular: Rate/Rhythm: regular rate Gastrointestinal (Abdomen): normal bowel sounds, soft, nontender, no hepatosplenomegaly Psychiatric: Orientation: alert and oriented x 3 Results & Data Vital Signs (Past 12 Hours) Vital Signs Temp Pulse Pulse Resp BP Pulse Ox Pulse Ox 08/18/24 11:01 36.9 C 63 18 163/73 H 96 08/18/24 10:26 08/18/24 07:20 36.6 C 56 L 16 179/81 H 98 08/18/24 05:24 36.7 C 55 L 14 173/90 H 98 08/18/24 02:54 46 L 18 141/82 H 97 08/18/24 02:52 51 L 14 169/86 H 98 08/18/24 02:52 99 08/18/24 02:22 48 L 08/18/24 01:23 58 L 16 173/90 H 100 O2 Del Method O2 Del Method 08/18/24 11:01 Room Air 08/18/24 10:26 Room Air 08/18/24 07:20 Room Air 08/18/24 05:24 Room Air 08/18/24 02:54 Room Air 08/18/24 02:52 Room Air 08/18/24 02:52 Room Air 08/18/24 02:22 08/18/24 01:23 Room Air PG Care Time/CCT Total # of Minutes Spent Total Time Spent with Patient: Total time spent is greater than 50% in coordination of care (as documented) at patient's floor/unit and/or counseling patient: Coding Level of Care Code 75123 IN/OBS CONSULT LVL 4,60M Diagnoses Nausea R11.0 Abdominal pain, acute R10.9
--- NOTE | 2024-08-18 13:58 | Hospitalist Progress Note ---
Date of Service August 18, 2024 Assessment & Plan (1) Abdominal pain, acute: Plan: 49-year-old female with past medical history significant for prediabetes, bipolar 1 disorder comes because of nausea /vomiting and abdominal pain and feeling cold. Patient had colonoscopy earlier. 2 polyps were removed. Patient states after going home initially felt dizzy and nausea. After some time symptoms subsided. Then she ate some food after which stomach became very upset. She had several episodes of nausea and vomiting. Had severe abdominal pain. [place] very cold and clammy and came to the ER. Received pain meds and antiemetics in ER. Currently abdominal pain is improved. Patient states earlier she had some chest discomfort that got resolved now. Currently no headache. Vision is okay. Has some runny nose. No sore throat. Has some cough. Denies shortness of breath. Afebrile. Denies any blood in the stools. Not micturating much. Hemodynamics are okay. Somewhat restless. Acute abdominal pain Nausea and vomiting Unclear etiology DD: Pancreatitis, THC use Post colonoscopy and 2 polyps removed in the sigmoid colon --CT ABD:No active gastrointestinal bleeding identified. No acute findings. Check lipase levels --Lactate levels normalized with IV fluids --Blood cultures pending --Pathology pending --Empirically on Zosyn -- Continue bowel rest, IV fluids Gastroenterology consulted Antiemetics, pain control as needed Hypokalemia Hypomagnesemia Likely due to GI losses Monitor electrolytes as needed Prediabetes HbA1c 5.8 Atypical chest pain EKG showed no signs of acute ischemia Echo showed no wall motion abnormality Initial troponin negative Trend troponins Bipolar 1 disorder Continue home medications DVT prophylaxis SCDs for now CODE STATUS Full code Disposition Expect to discharge home once stable Admission and Anticipated Discharge Date Admission Date: August 18, 2024 Subjective Patient is seen and examined at bedside States having nausea associated with abdominal pain today States feeling very tired today No other complaints Review of Systems Review of Systems: All systems reviewed & are unremarkable except as noted in Subjective Physical Exam Physical Exam: Physical Exam: Vitals signs as noted above General Appearance:Moderately built and nourished, no apparent distress Head: normocephalic, Atraumatic Eyes: normal inspection, EOMI Neck: supple, Trachea midline Respiratory/Chest: Normal breath sounds, CTA, No accessory muscle use Cardiovascular: S1, S2, No murmur Abdomen/GI:Soft, generalized tender, Bowel sounds present Extremities/Musculoskeletal:normal inspection, no edema Neurologic/Psych:AAOX3, grossly no focal neurological deficits Skin: normal color, warm Results & Data Results & Data Vital Signs (Past 12 Hours) Vital Signs Temp Pulse Pulse Resp BP Pulse Ox Pulse Ox 08/18/24 11:01 36.9 C 63 18 163/73 H 96 08/18/24 10:26 08/18/24 07:20 36.6 C 56 L 16 179/81 H 98 08/18/24 05:24 36.7 C 55 L 14 173/90 H 98 08/18/24 02:54 46 L 18 141/82 H 97 08/18/24 02:52 51 L 14 169/86 H 98 08/18/24 02:52 99 08/18/24 02:22 48 L O2 Del Method O2 Del Method 08/18/24 11:01 Room Air 08/18/24 10:26 Room Air 08/18/24 07:20 Room Air 08/18/24 05:24 Room Air 08/18/24 02:54 Room Air 08/18/24 02:52 Room Air 08/18/24 02:52 Room Air 08/18/24 02:22 Laboratory Results Short CBC 08/17/24 08/18/24 Range/Units 22:19 06:45 WBC 9.68 12.23 H (4.8-10.8) K/ul Hgb 14.8 13.7 (12.0-16.0) g/dl Hct 43.0 40.3 (37.0-47.0) % Plt Count 432 H 342 (130-400) K/uL BMP 08/17/24 08/18/24 22:19 06:45 Sodium 139 139 Potassium 3.0 L 3.8 D Chloride 103 106 Carbon Dioxide 22 24 BUN 8 5 L Creatinine 0.72 0.56 L Glucose 121 H 198 H Calcium 10.0 8.5 L Liver Function 08/17/24 Range/Units 22:19 Total Bilirubin 0.9 (0.2-1.0) mg/dl AST 18 (13-39) U/L ALT 10 (7-52) U/L Alkaline Phosphatase 51 (34-104) U/L Albumin 5.1 H (3.4-5.0) gm/dl Urine 08/18/24 Range/Units 07:05 Urine Color Yellow Urine Appearance Clear (Clear) Urine pH 7.5 (4.5-7.5) Ur Specific [place] 1.021 (1.000-1.030) Urine Protein Negative (Negative) Urine Glucose (UA) 1+ H (Negative)
[2024-08-18 14:38] LABS: Troponin I High Sensitivity 37.4 pg/ml (0-14)
[2024-08-18] MEDS ORDERED: PROMETHAZINE 6.25 MG/50.25 ML BAG IV PRN (16:16)
[2024-08-18] MEDS: PANTOprazole 40 MG/10 ML SYR IV SCH (17:08)
--- NOTE | 2024-08-18 17:09 | XRay Report ---
KUB CLINICAL HISTORY: Nausea and vomiting. FINDINGS: An AP, portable, supine abdominal radiograph is correlated with abdominal CT dated 08/17/20 24. There is a nonobstructed abdominal bowel gas pattern. No evidence of intraperitoneal free air is seen on this supine image. There are no abnormal abdominal calcifications. The bony structures appear intact. IMPRESSION: No acute abnormality is identified. Electronically signed by: Luis Pastor M.D. 08/18/2024 5:08 PM
--- NOTE | 2024-08-18 17:29 | Cardiology Consultation ---
Date of Consultation August 18, 2024 Assessment & Plan (1) Abdominal pain, acute: (2) Nausea: (3) Troponin I above reference range: (4) Elevated blood pressure reading with diagnosis of hypertension: Plan Patient with illness includes diffuse abdominal discomfort, nauseousness, retching, heavy perspiration. Is difficult distinguish if she has chest discomfort as a result of her multiple episodes of vomiting. No gross blood observed in the emesis during my assessment. Her high-sensitivity troponin is minimally elevated (8.3--> 23--> 37.4 pg/ml), and certainly her symptoms are concerning being a possible anginal equivalent. She does however have diffuse abdominal tenderness on palpation, and her EKG is reassuring as is her resting echocardiogram from earlier today. Blood pressure is elevated, but I think that is because of her degree of distress. Recommend ongoing continuance of her n.p.o. status. Continue IV fluids for supportive care. Blood culture and urine culture have been obtained. Toxicology screen only positive for THC. Lyme screen and viral respiratory panel normal. Recommend ongoing antiemetics and pain relievers. Repeat EKG tomorrow. Repeat troponin at 1925 and again in AM. Case discussed with Dr Patel for the purpose of coordination of care. History of Present Illness Attending Physician: Bijan Patel MD History of Present Illness Ania Baker is a 49-year-old female seen in cardiology consultation per the request of Dr. Patel for the evaluation of abdominal pain, chest pain, heavy perspiration. The patient has a history of prediabetes, bipolar 1 disorder, and posttraumatic stress disorder. Her outpatient medications include Seroquel, sertraline, and she uses medical marijuana she believes 100 mg/day, last use yesterday 08/17/2024. Her recent history dates back to yesterday when she had a routine screening colonoscopy. 2 small polyps were removed. She states that afterward when she returned home she felt poorly and developed progressive nauseousness, vomiting, heavy perspiration and feeling like she was cold. A CT of the abdomen pelvis revealed no abnormalities chest x-ray and KUB were also within normal limits. She has received multiple doses of the antiemetics Zofran. She has received Phenergan, morphine and lorazepam. At the time of my arrival, the patient appeared acutely ill, and was sitting up in bed with her legs dangling on the side of the bed vomiting. She states that she has vomited over 10 times in the last 24 hours. Per review of the anesthesia record from the colonoscopy performed on 08/17/2024, patient received midazolam, fentanyl, propofol and ketamine for the procedure. She describes chest pain and shortness of breath on review of systems. She denies any past cardiac history. She is an everyday cigarette smoker. Her family history is notable for father with hypercholesterolemia in paternal grandfather of a myocardial infarction in his 50s. Allergies Allergy/AdvReac Type Severity Reaction Status Date / Time nickel Allergy Mild redness/irr Verified 08/17/24 13:30 itation Home Medications Medication Instructions Recorded Confirmed Type cholecalciferol (vitamin D3) 50 50 mcg PO DAILY 05/28/22 08/18/24 History mcg (2,000 unit) capsule (Vitamin D3) quetiapine 100 mg tablet 100 mg PO HS 05/28/22 08/18/24 History Medical Marijuana 1 dose PO DAILY 08/05/24 08/18/24 History triamcinolone acetonide 55 mcg 1 spray intranasal DAILY 08/05/24 08/18/24 History nasal spray aerosol (Nasacort) sertraline 50 mg tablet 50 mg PO DAILY 08/18/24 08/18/24 History Patient History Medical History Hx gestational diabetes resolved Bipolar disorder Post traumatic stress disorder Anxiety Symptoms consistent with irritable bowel syndrome Surgical History History of colonoscopy History of lumpectomy of left breast benign mass removed History of wisdom tooth extraction History of tonsillectomy History of hysterectomy partial Family History Father Family history of reaction to anesthesia heart rate dropped during colonoscopy Prostate cancer Mother Family hx of colon cancer Colorectal cancer Grandmother (Maternal) Breast cancer Grandfather (Paternal) Myocardial infarction Denies family history of Ovarian cancer Social History Smoking Status: Current every day smoker Tobacco Type: Cigarettes and E-cigarettes / Vaping Cigarettes Per Day: 3 packs a week; Second Hand Exposure: No; Do You Dip or Chew Tobacco: No; Hx Alcohol Use: No Hx Substance Use: No Preferred Language: Kinyarwanda Communication Ability: Effective [employer] Required: No Beliefs That Will Affect Care: None marital status: Current Living Situation: Significant Other current occupational status: employed Other Information That Helps Us Care for You: No Feels Safe at Home: Yes Safety Concerns: Feels Safe At This Time Assistive Devices: None Review of Systems Review of Systems: All systems reviewed & are unremarkable except as noted in HPI & below Physical Exam Constitutional: + ill appearing, + thin and + diaphoreti c Respiratory: normal respiratory effort, lungs clear to auscultation Cardiovascular: RRR, no murmur, no edema Gastrointestinal (Abdomen): Mild diffuse abdominal tenderness Neurologic: PERRL, EOMI, accommodation nl, no face palsy, no dysarthria Results & Data Vital Signs (Past 12 Hours) Vital Signs Temp Pulse Pulse Resp BP Pulse Ox O2 Del Method 08/18/24 15:35 36.3 C L 67 20 186/84 H 98 Room Air 08/18/24 14:21 62 08/18/24 11:01 36.9 C 63 18 163/73 H 96 Room Air 08/18/24 10:26 Room Air 08/18/24 07:20 36.6 C 56 L 16 179/81 H 98 Room Air 08/18/24 05:24 36.7 C 55 L 14 173/90 H 98 Room Air Laboratory Results Cardiac Enzymes 08/17/24 08/18/24 08/18/24 Range/Units 22:19 06:45 13:51 AST 18 (13-39) U/L Troponin I High Sens 8.3 23.0 H D 37.4 H D (0-14) pg/ml CBC 08/17/24 08/18/24 Range/Units 22:19 06:45 WBC 9.68 12.23 H (4.8-10.8) K/ul RBC 4.98 4.53 (4.20-5.40) M/uL Hgb 14.8 13.7 (12.0-16.0) g/dl Hct 43.0 40.3 (37.0-47.0) % Plt Count 432 H 342 (130-400) K/uL Neut # (Auto) 4.34 11.10 H (1.40-6.50) K/uL Lymph # (Auto) 4.32 H 0.85 L (1.20-3.40) K/uL [place] # (Auto) 0.84 H 0.22 (0.11-0.59) K/uL Eos # (Auto) 0.07 0.00 (0.00-0.50) K/uL Baso # (Auto) 0.10 0.02 (0.00-0.20) K/uL Comprehensive Metabolic Panel 08/17/24 08/18/24 Range/Units 22:19 06:45 Sodium 139 139 (136-145) mmol/L Potassium 3.0 L 3.8 D (3.5-5.1) mmol/L Chloride 103 106 (98-107) mmol/L Carbon Dioxide 22 24 (21-32) mmol/L BUN 8 5 L (6-23) mg/dl Creatinine 0.72 0.56 L (0.6-1.2) mg/dl Glucose 121 H 198 H (70-99(Fasting)) mg/dl Calcium 10.0 8.5 L (8.6-10.3) mg/dl AST 18 (13-39) U/L ALT 10 (7-52) U/L Alkaline Phosphatase 51 (34-104) U/L Total Protein 7.8 (6.0-8.3) gm/dl Albumin 5.1 H (3.4-5.0) gm/dl Intake and Output 08/18/24 08/18/24 08/18/24 06:59 14:59 22:59 Intake Total 1495 / 1495 1458.167 / 1458.167 Output Total 750 / 750 Balance 1495 / 1495 708.167 / 708.167 Intake: IV 1495 / 1495 948.167 / 948.167 Acetaminophen 1,000 mg In 100 100 / 100 ml @ 400 mls/hr IV NOW STA Rx#: [id number] D5w and Nss 1,000 ml @ 125 mls/ 497.917 / 497.917 hr IV .Q8H LOVE Rx#:[id number] Magnesium Sulfate / D5w 1 gm In 200 / 200 100 ml @ 50 mls/hr IV Q2H [facility] Rx#:[id number] Piperacillin/Tazobactam 4.5 gm 100 / 100 100 / 100 In 100 ml @ 25 mls/hr IV Q8H [facility] Rx#:[id number] Potassium Chloride / Wtr 10 meq 295 / 295 100 / 100 In 100 ml @ 100 mls/hr IV Q1H [facility] Rx#:[id number] Promethazine 6.25 mg In 50.25 50.25 / 50.25 ml @ 201 mls/hr IV NOW ONE Rx#: [id number] Sodium Chloride 0.9% 1,000 ml @ 1000 / 1000 999 mls/hr IV .Q1H1M ONE Rx#: [id number] Oral 510 / 510 Output: Urine 500 / 500 Emesis 250 / 250 Other: Other Intake Source npo # Emes[place] 1 Weight 54.5 kg Weight Measurement Method Built in [facility] Diagnostic Findings Initial EKG performed on 08/18/2024 was reviewed and interpreted independently: Sinus bradycardia 40 bpm with sinus arrhythmia and mild nonspecific repolarization abnormalities. Repeat tracings were performed 08/18/2024 at 17: 00: 28 and 17:01:29 The first tracing was technically limited due to baseline wander The second tracing revealed sinus rhythm versus an ectopic atrial rhythm with negative P wave axis in the inferior leads, with a short [place] interval, minimal nonspecific repolarization abnormalities, corrected QT interval normal at 460 ms. Echocardiogram performed earlier today and interpreted independently: Normal resting echocardiogram with normal left ventricular myocardial thickness, no regional wall motion abnormalities, normal LVEF in the range of 60 to 65% The right ventricular chamber size and systolic function were normal. The left ventricular diastolic function was normal. No significant valvular disease observed.
[2024-08-18] MEDS: FOSAPREPITANT DIMEGLUMINE 150 MG in SODIUM CHLORIDE 0.9% 145 ML IV ONE (17:39)
[2024-08-18 20:00] VITALS: RESP 18
[2024-08-18] MEDS: QUEtiapine FUMARATE 100 MG TABLET PO SCH (20:30)
[2024-08-18] MEDS: MAGNESIUM CHLORIDE W/CALCIUM 64MG DELAYED REL TAB PO SCH (20:30)
[2024-08-19 07:05] LABS: Hematocrit (blood only) 34.8 % (37.0-47.0); Hemoglobin 11.9 g/dl (12.0-16.0); Mean Corpuscular Hemoglobin 30.2 pg (25.0-34.0); Mean Corpuscular Hgb Conc 34.2 g/dL (32.0-36.0); Mean Corpuscular Volume 88.3 fL (80.0-100.0); Mean Platelet Volume 9.5 fL (9.4-12.4); Platelet Count 323 K/uL (130-400); RDW Standard Deviation 42.3 fL (36.4-46.3); Red Blood Count 3.94 M/uL (4.20-5.40)
[2024-08-19 07:25] LABS: BUN Creatinine Ratio 14.1 (10-20); Calcium 8.5 mg/dl (8.6-10.3); Potassium 3.2 mmol/L (3.5-5.1)
[2024-08-19 07:32] LABS: Troponin I High Sensitivity 35.2 pg/ml (0-14)
[2024-08-19 07:48] VITALS: O2SAT 97
[2024-08-19] MEDS ORDERED: POTASSIUM CHLORIDE / WTR 10 MEQ/100 ML PLCT IV SCH (09:15)
[2024-08-19] MEDS: POTASSIUM CHLORIDE CRTAB 20 MEQ TABCR PO ONE ×2 (10:07→12:00)
[2024-08-19 10:54] VITALS: BP 123/74; TEMP 98.2
[2024-08-19] MEDS ORDERED: POTASSIUM CHLORIDE CRTAB 20 MEQ TABCR PO SCH (12:00)
--- NOTE | 2024-08-19 12:39 | Cardiology Progress Note ---
Date of Service August 19, 2024 Assessment & Plan (1) Abdominal pain, acute: (2) Nausea: (3) Troponin I above reference range: (4) Elevated blood pressure reading with diagnosis of hypertension: Plan Patient with illness includes diffuse abdominal discomfort, nauseousness, retching, heavy perspiration. Her high-sensitivity troponin was minimally elevated (8.3--> 23--> 37.4 pg/ml--> 45.4--> 35.2 pg/ml ), and had trended down. Repeat EKG from 08/19 without ischemia. Symptoms have resolved. BP now normal. Cardiac work up reassuring. Do not think symptoms were cardiac in etiology. Mild troponin elevation likely due to myocardial strain. Question if episode was related to intolerance of the medication used for sedation for colonoscopy. No further cardiac work up felt to be indicated. Cardiology to sign off . Call with questions or concerns. Admission and Anticipated Discharge Date Admission Date: August 18, 2024 Subjective Patient seen in cardiology follow up. Notes feeling improved overnight. Nausea is resolved. Tolerating liquid diet. Telemetry reveals SR in the 60-70s. Physical Exam Constitutional: + ill appearing, + thin and + diaphoreti c Respiratory: normal respiratory effort, lungs clear to auscultation Cardiovascular: RRR, no murmur, no edema Gastrointestinal (Abdomen): Abd: not examined as patient was sitting upright and eating lunch Neurologic: PERRL, EOMI, accommodation nl, no face palsy, no dysarthria Results & Data Vital Signs (Past 12 Hours) Vital Signs Temp Pulse Pulse Resp BP Pulse Ox O2 Del Method 08/19/24 10:53 36.8 C 74 18 123/74 97 Room Air 08/19/24 07:58 60 08/19/24 07:47 36.7 C 66 18 109/70 97 Room Air 08/19/24 03:52 36.8 C 91 H 18 111/68 95 Room Air Laboratory Results Cardiac Enzymes 08/18/24 08/18/24 08/19/24 Range/Units 13:51 19:21 06:41 Troponin I High Sens 37.4 H D 45.4 H 35.2 H D (0-14) pg/ml CBC 08/19/24 Range/Units 06:41 WBC 9.30 (4.8-10.8) K/ul RBC 3.94 L (4.20-5.40) M/uL Hgb 11.9 L (12.0-16.0) g/dl Hct 34.8 L (37.0-47.0) % Plt Count 323 (130-400) K/uL Comprehensive Metabolic Panel 08/19/24 Range/Units 06:41 Sodium 142 (136-145) mmol/L Potassium 3.2 L (3.5-5.1) mmol/L Chloride 108 H (98-107) mmol/L Carbon Dioxide 27 (21-32) mmol/L BUN 9 (6-23) mg/dl Creatinine 0.64 (0.6-1.2) mg/dl Glucose 94 (70-99(Fasting)) mg/dl Calcium 8.5 L (8.6-10.3) mg/dl Intake and Output 08/18/24 08/19/24 08/19/24 22:59 06:59 14:59 Intake Total 1209 / 2767.167 100 / 2767.167 1000 / 1000 Balance 1209 / 2016.167 100 / 2016.167 1000 / 1000 Intake: IV 1109 / 2157.167 100 / 2157.167 1000 / 1000 Fosaprepitant Dimeglumine 150 145 / 145 mg In Sodium Chloride 0.9% 145 ml @ 300 mls/hr IV ONE ONE Rx#: [id number] Lactated Ringer's 1,000 ml @ 80 864 / 864 1000 / 1000 mls/hr IV .[id number] [facility] Rx#: [id number] Piperacillin/Tazobactam 4.5 gm 100 / 300 100 / 300 In 100 ml @ 25 mls/hr IV Q8H [facility] Rx#:[id number] Oral 100 / 610 0 / 610 Other: Other Intake Source ice chips NPO # Unmeasured Voids 2 1 Weight 53.5 kg Weight Measurement Method Built in [facility] Diagnostic Findings EKG performed 08/19/24 and interpreted independently reveals sinus bradycardia 58 bpm, nonspecific T wave abnormality. Compared to the previous tracing, a previous baseline wander artifact has resolved.
--- NOTE | 2024-08-19 13:21 | Hospitalist Progress Note ---
Date of Service August 19, 2024 Assessment & Plan (1) Abdominal pain, acute: Plan: 49-year-old female with past medical history significant for prediabetes, bipolar 1 disorder comes because of nausea /vomiting and abdominal pain and feeling cold. Patient had colonoscopy earlier. 2 polyps were removed. Patient states after going home initially felt dizzy and nausea. After some time symptoms subsided. Then she ate some food after which stomach became very upset. She had several episodes of nausea and vomiting. Had severe abdominal pain. [place] very cold and clammy and came to the ER. Received pain meds and antiemetics in ER. Currently abdominal pain is improved. Patient states earlier she had some chest discomfort that got resolved now. Currently no headache. Vision is okay. Has some runny nose. No sore throat. Has some cough. Denies shortness of breath. Afebrile. Denies any blood in the stools. Not micturating much. Hemodynamics are okay. Somewhat restless. Acute abdominal pain Nausea and vomiting Unclear etiology DD: Pancreatitis, THC use, intolerance to sedation for colonoscopy Post colonoscopy and 2 polyps removed in the sigmoid colon --CT ABD:No active gastrointestinal bleeding identified. No acute findings. Normal lipase level --Lactate levels normalized with IV fluids --Blood cultures: Negative to date --Pathology: Tubular adenoma of polyp. Advised to follow-up with GI as outpatient --Empirically on Zosyn--discontinue --Tolerating diet Plan to discharge home today Hypokalemia Hypomagnesemia Likely due to GI losses Monitor electrolytes as needed Prediabetes HbA1c 5.8 Atypical chest pain EKG showed no signs of acute ischemia Echo showed no wall motion abnormality Appreciate cardiology input Resolved Bipolar 1 disorder Continue home medications DVT prophylaxis SCDs for now CODE STATUS Full code Disposition Home Admission and Anticipated Discharge Date Admission Date: August 18, 2024 Subjective Patient is seen and examined at bedside Doing a lot better today Nausea, vomiting, abdominal pain resolved Denies any chest pain, dyspnea Tolerating regular diet Plan to be discharged home today Review of Systems Review of Systems: All systems reviewed & are unremarkable except as noted in Subjective Physical Exam Physical Exam: Physical Exam: Vitals signs as noted above General Appearance:Moderately built and nourished, no apparent distress Head: normocephalic, Atraumatic Eyes: normal inspection, EOMI Neck: supple, Trachea midline Respiratory/Chest: Normal breath sounds, CTA, No accessory muscle use Cardiovascular: S1, S2, No murmur Abdomen/GI:Soft, non tender, Bowel sounds present Extremities/Musculoskeletal:normal inspection, no edema Neurologic/Psych:AAOX3, grossly no focal neurological deficits Skin: normal color, warm Results & Data Results & Data Vital Signs (Past 12 Hours) Vital Signs Temp Pulse Pulse Resp BP Pulse Ox O2 Del Method 08/19/24 10:53 36.8 C 74 18 123/74 97 Room Air 08/19/24 07:58 60 08/19/24 07:47 36.7 C 66 18 109/70 97 Room Air 08/19/24 03:52 36.8 C 91 H 18 111/68 95 Room Air Laboratory Results Short CBC 08/19/24 Range/Units 06:41 WBC 9.30 (4.8-10.8) K/ul Hgb 11.9 L (12.0-16.0) g/dl Hct 34.8 L (37.0-47.0) % Plt Count 323 (130-400) K/uL BMP 08/19/24 06:41 Sodium 142 Potassium 3.2 L Chloride 108 H Carbon Dioxide 27 BUN 9 Creatinine 0.64 Glucose 94 Calcium 8.5 L
--- NOTE | 2024-08-19 13:33 | Discharge Summary ---
Date of Service August 19, 2024 Admission HPI Per Admitting Provider 49-year-old female with past medical history significant for prediabetes, bipolar 1 disorder comes because of nausea /vomiting and abdominal pain and feeling cold. Patient had colonoscopy earlier. 2 polyps were removed. Patient states after going home initially felt dizzy and nausea. After some time symptoms subsided. Then she ate some food after which stomach became very upset. She had several episodes of nausea and vomiting. Had severe abdominal pain. [place] very cold and clammy and came to the ER. Received pain meds and antiemetics in ER. Currently abdominal pain is improved. Patient states earlier she had some chest discomfort that got resolved now. Currently no headache. Vision is okay. Has some runny nose. No sore throat. Has some cough. Denies shortness of breath. Afebrile. Denies any blood in the stools. Not micturating much. Hemodynamics are okay. Somewhat restless. Past medical history. As mentioned above Past surgical history. Left breast lesion excision. Partial hysterectomy. Tonsillectomy. Social history. Smokes 0.1 packs a day for 12 years. Alcohol 2-3 times a week per epic. Smokes marijuana. Family history. Maternal grandmother had breast cancer. Father had hypercholesterolemia. Hypertension. Paternal grandfather of [place] at age 59. Admission Exam Per Admitting Provider General- Not in distress Head- atraumatic Eyes- PERRL. ENT- oropharynx clear Neck- supple, no JVD. Lungs- clear to auscultation no wheezing or crackles Heart- regular rate and rhythm; no murmur, no gallop. Abdomen- normal bowel sounds, soft, mild diffuse discomfort , no distension. Extremities- no pretibial edema, no erythema seen. Neuro- alert, oriented , restless, PERRL, no facial palsy; no dysarthria; moves extremities Principal Diagnosis Intractable nausea, vomiting, abdominal pain Hypokalemia Hypomagnesemia Tubular adenoma of sigmoid polyp Discharge Data Allergies Allergy/AdvReac Type Severity Reaction Status Date / Time nickel Allergy Mild redness/irr Verified 08/17/24 13:30 itation Consultations 08/18/24 00:43 ED Decision to Admit Stat 08/18/24 08:00 Consult Gastroenterology Routine 08/18/24 16:15 Consult Cardiology Routine Procedures Performed Laboratory Results WBC 9.30 K/ul (4.8-10.8) 08/19/24 06:41 RBC 3.94 M/uL (4.20-5.40) L 08/19/24 06:41 Hgb 11.9 g/dl (12.0-16.0) L 08/19/24 06:41 POC Hgb 15.3 g/dl (12.0-16.0) 08/17/24 22:26 Hct 34.8 % (37.0-47.0) L 08/19/24 06:41 POC Hct 45 % (37-47) 08/17/24 22:26 MCV 88.3 fL (80.0-100.0) 08/19/24 06:41 MCH 30.2 pg (25.0-34.0) 08/19/24 06:41 MCHC 34.2 g/dL (32.0-36.0) 08/19/24 06:41 RDW Std Deviation 42.3 fL (36.4-46.3) 08/19/24 06:41 RDW Coeff of Veronica 13.0 % (11.5-14.5) 08/19/24 06:41 Plt Count 323 K/uL (130-400) 08/19/24 06:41 MPV 9.5 fL (9.4-12.4) 08/19/24 06:41 Immature Gran % (Auto) 0.3 % 08/18/24 06:45 Neut % (Auto) 90.7 % 08/18/24 06:45 Lymph % (Auto) 7.0 % 08/18/24 06:45 [place] % (Auto) 1.8 % 08/18/24 06:45 Eos % (Auto) 0.0 % 08/18/24 06:45 Baso % (Auto) 0.2 % 08/18/24 06:45 Neut # (Auto) 11.10 K/uL (1.40-6.50) H 08/18/24 06:45 Lymph # (Auto) 0.85 K/uL (1.20-3.40) L 08/18/24 06:45 [place] # (Auto) 0.22 K/uL (0.11-0.59) 08/18/24 06:45 Eos # (Auto) 0.00 K/uL (0.00-0.50) 08/18/24 06:45 Baso # (Auto) 0.02 K/uL (0.00-0.20) 08/18/24 06:45 Immature Gran # (Auto) 0.04 K/uL (0.01-0.20) 08/18/24 06:45 RBC Morphology Unremarkable 08/18/24 06:45 POC Sodium 142 mmol/L (135-144) 08/17/24 22:26 Sodium 142 mmol/L (136-145) 08/19/24 06:41 POC Potassium 2.9 mmol/L (3.3-5.0) L 08/17/24 22:26 Potassium 3.2 mmol/L (3.5-5.1) L 08/19/24 06:41 POC Chloride 103 mmol/L (101-112) 08/17/24 22:26 Chloride 108 mmol/L (98-107) H 08/19/24 06:41 Carbon Dioxide 27 mmol/L (21-32) 08/19/24 06:41 POC Total CO2 22 mmol/L (24-31) L 08/17/24 22:26 Anion Gap 7 (3-11) 08/19/24 06:41 POC Anion Gap 21.0 mmol/L (16-25) 08/17/24 22:26 POC BUN 6 mg/dl (7-18) L 08/17/24 22:26 BUN 9 mg/dl (6-23) 08/19/24 06:41 Creatinine 0.64 mg/dl (0.6-1.2) 08/19/24 06:41 POC Creatinine 0.7 mg/dl (0.6-1.3) 08/17/24 22:26 Est Cr Clr Drug Dosing 82.0 ml/min 08/19/24 06:41 eGFR 109.62 08/19/24 06:41 BUN/Creatinine Ratio 14.1 (10-20) 08/19/24 06:41 Glucose 94 mg/dl (70-99(Fasting)) 08/19/24 06:41 POC Glucose (other) 127 mg/dl (70-99) H 08/17/24 22:26 Estimat Average Glucose 120 mg/dl 08/18/24 06:45 Hemoglobin A1c 5.8 % (4.5-5.6) H 08/18/24 06:45 Lactate 1.5 mmol/L (0.4-2.0) 08/18/24 02:25 Calcium 8.5 mg/dl (8.6-10.3) L 08/19/24 06:41 POC Ioniz Calcium Pauline 1.10 mmol/l (1.12-1.32) L 08/17/24 22:26 Magnesium 2.0 mg/dl (1.7-2.4) 08/19/24 06:41 Total Bilirubin 0.9 mg/dl (0.2-1.0) 08/17/24 22:19 AST 18 U/L (13-39) 08/17/24 22:19 ALT 10 U/L (7-52) 08/17/24 22:19 Alkaline Phosphatase 51 U/L (34-104) 08/17/24 22:19 Troponin I High Sens 35.2 pg/ml (0-14) H D 08/19/24 06:41 Total Protein 7.8 gm/dl (6.0-8.3) 08/17/24 22:19 Albumin 5.1 gm/dl (3.4-5.0) H 08/17/24 22:19 Globulin 2.7 gm/dl (2.5-4.0) 08/17/24 22:19 Albumin/Globulin Ratio 1.9 (0.9-2) 08/17/24 22:19 Lipase 13 U/L (11-82) 08/18/24 13:51 TSH 1.831 uIu/ml (0.300-4.500) 08/17/24 22:19 HCG, Qual Negative (Negative) 08/17/24 22:19 Urine Color Yellow 08/18/24 07:05 Urine Appearance Clear (Clear) 08/18/24 07:05 Urine pH 7.5 (4.5-7.5) 08/18/24 07:05 Ur Specific [place] 1.021 (1.000-1.030) 08/18/24 07:05 Urine Protein Negative (Negative) 08/18/24 07:05 Urine Glucose (UA) 1+ (Negative) H 08/18/24 07:05 Urine Ketones 3+ (Negative) H 08/18/24 07:05 Urine Blood Negative (Negative) 08/18/24 07:05 Urine Nitrite Negative (Negative) 08/18/24 07:05 Urine Bilirubin Negative (Negative) 08/18/24 07:05 Urine Urobilinogen Negative (Negative) 08/18/24 07:05 Ur Leukocyte Esterase Negative (Negative) 08/18/24 07:05 Adenovirus (PCR) Not Detected (NotDetected) 08/17/24 23:00 B. pertussis DNA (PCR) Not Detected (NotDetected) 08/17/24 23:00 B.parapertussis DNA PCR Not Detected (NotDetected) 08/17/24 23:00 Lyme Disease Screen Negative (Negative) 08/17/24 22:19 C. pneumoniae DNA (PCR) Not Detected (NotDetected) 08/17/24 23:00 Coronavirus OC43 (PCR) Not Detected (NotDetected) 08/17/24 23:00 Coronavirus HKU1 (PCR) Not Detected (NotDetected) 08/17/24 23:00 Coronavirus 229E (PCR) Not Detected (NotDetected) 08/17/24 23:00 SARS-CoV-2 (PCR) Not Detected (NotDetected) 08/17/24 23:00 Coronavirus NL63 (PCR) Not Detected (NotDetected) 08/17/24 23:00 Human Metapneumovir PCR Not Detected (NotDetected) 08/17/24 23:00 Influenza Type A (PCR) Not Detected (NotDetected) 08/17/24 23:00 Influenza Type B (PCR) Not Detected (NotDetected) 08/17/24 23:00 M. pneumoniae (PCR) Not Detected (NotDetected) 08/17/24 23:00 Parainfluenza 1 (PCR) Not Detected (NotDetected) 08/17/24 23:00 Parainfluenza 2 (PCR) Not Detected (NotDetected) 08/17/24 23:00 Parainfluenza 3 (PCR) Not Detected (NotDetected) 08/17/24 23:00 Parainfluenza 4 (PCR) Not Detected (NotDetected) 08/17/24 23:00 RSV (PCR) Not Detected (NotDetected) 08/17/24 23:00 Entero/Rhino (PCR) Not Detected (NotDetected) 08/17/24 23:00 Impressions Abdomen/Pelvis CT 08/17/24 22:20 Exam(s): CT ABDOMEN + PELVIS With Contrast IV Amt: 95 ml opti 320 EXAM: CT Abdomen and Pelvis With Intravenous Contrast CLINICAL HISTORY: Reason for exam: severe pain, fever, colonoscopy today w/ polyp rem. TECHNIQUE: Axial computed tomography images of the abdomen and pelvis with intravenous contrast. CTDI is 13.96 mGy and DLP is 618.87 mGy-cm. Automated exposure control was utilized for the study. A dose lowering technique was utilized adhering to the principles of ALARA. CONTRAST: Patient received 95 ml opti 320 of IV contrast COMPARISON: 05/28/22 FINDINGS: Lung bases: Unremarkable. ABDOMEN: Liver: Unremarkable. No mass. Gallbladder and bile ducts: Unremarkable. No calcified stones. No ductal dilation. Pancreas: Unremarkable. No mass. No ductal dilation. Spleen: Unremarkable. No splenomegaly. Adrenals: Unremarkable. No mass. Kidneys and ureters: Unremarkable. No solid mass. No hydronephrosis. Stomach and bowel: Unremarkable. No obstruction. No mucosal thickening. No active gastrointestinal bleeding identified. PELVIS: Appendix: Normal appendix. Bladder: Unremarkable. No mass. Reproductive: Hysterectomy. ABDOMEN and PELVIS: Intraperitoneal space: Unremarkable. No free air, significant free fluid, or fluid collection. Bones/joints: No acute fracture. No dislocation. Soft tissues: Unremarkable. Vasculature: Unremarkable. No abdominal aortic aneurysm. Lymph nodes: Unremarkable. No enlarged lymph nodes. IMPRESSION: No active gastrointestinal bleeding identified. No acute findings. Electronically signed by: Zabrina Sommer M.D. 08/17/24 23:14 PM Chest X-Ray 08/17/24 22:20 XR chest 1V portable CLINICAL HISTORY: colonoscopy, severe pain TECHNIQUE: Single frontal radiograph of the chest was obtained. Comparison: Comparison is made to chest and abdomen radiograph 05/28/2022 FINDINGS: No lines and tubes are seen. The cardiomediastinal silhouette is normal. The lungs are clear. No evidence of pleural effusion or pneumothorax. IMPRESSION: No acute chest disease. ACT 112: Negative or not required by law. Electronically signed by: Zachary Madrigal M.D. 08/18/2024 6:51 AM KUB X-Ray 08/18/24 16:13 KUB CLINICAL HISTORY: Nausea and vomiting. FINDINGS: An AP, portable, supine abdominal radiograph is correlated with abdominal CT dated 08/17/2024. There is a nonobstructed abdominal bowel gas pattern. No evidence of intraperitoneal free air is seen on this supine image. There are no abnormal abdominal calcifications. The bony structures appear intact. IMPRESSION: No acute abnormality is identified. Electronically signed by: Luis Pastor M.D. 08/18/2024 5:08 PM Ordered Studies 08/17/24 22:20 CT Abd and Pelvis [CT abd pelvis IV con only] Stat Hospital Course (1) Abdominal pain, acute: 49-year-old female with past medical history significant for prediabetes, bipolar 1 disorder comes because of nausea /vomiting and abdominal pain and feeling cold. Patient had colonoscopy earlier. 2 polyps were removed. Patient states after going home initially felt dizzy and nausea. After some time symptoms subsided. Then she ate some food after which stomach became very upset. She had several episodes of nausea and vomiting. Had severe abdominal pain. [place] very cold and clammy and came to the ER. Received pain meds and antiemetics in ER. Currently abdominal pain is improved. Patient states earlier she had some chest discomfort that got resolved now. Currently no headache. Vision is okay. Has some runny nose. No sore throat. Has some cough. Denies shortness of breath. Afebrile. Denies any blood in the stools. Not micturating much. Hemodynamics are okay. Somewhat restless. Acute abdominal pain Nausea and vomiting Unclear etiology DD: Pancreatitis, THC use, intolerance to sedation for colonoscopy Post colonoscopy and 2 polyps removed in the sigmoid colon --CT ABD:No active gastrointestinal bleeding identified. No acute findings. Normal lipase level --Lactate levels normalized with IV fluids --Blood cultures: Negative to date --Pathology: Tubular adenoma of polyp. Advised to follow-up with GI as outpatient --Empirically on Zosyn--discontinue --Tolerating diet Plan to discharge home today Hypokalemia Hypomagnesemia Likely due to GI losses Monitor electrolytes as needed Prediabetes HbA1c 5.8 Atypical chest pain EKG showed no signs of acute ischemia Echo showed no wall motion abnormality Appreciate cardiology input Resolved Bipolar 1 disorder Continue home medications DVT prophylaxis SCDs for now CODE STATUS Full code Disposition Home Total Time Total Time Spent Total Time Spent (In Minutes): 45 minutes Discharge Plan Discharge Items Patient Disposition: Home - Self-Care Reason For Visit: N/V AND ABDOMINAL PAIN Discharge Diagnosis: Intractable nausea, vomiting, abdominal pain Hypokalemia Hypomagnesemia Tubular adenoma of sigmoid polyp Condition on Discharge: Good Activity: Per Instructions section Exercise/Sports: Gradually increase as tolerated Non-emergency contact: Primary Care Provider and Bakery Demonstrator Call non-emergency contact if: you have any medication questions, your symptoms worsen, your pain is concerning for you and you have a fever Follow-up/Referrals: Charity Barraza DO [Primary Care Provider] - (Date & Time 08/24/2024 11:00 AM Provider Charity Barraza DO [facility] ) Diet: Heart Healthy Addtl Attending Provider Instructions: Follow-up with your primary care physician on 08/24/2024 11:00 AM Follow-up with your mural painter as recommended -- Your final blood cultures are pending at the time of discharge. Follow-up with your physician for results Seek immediate medical attention if your symptoms reoccur or worsen Please take all medications as instructed on discharge list below. Please call if you have any questions or problems. You can reach a [facility] hospitalist on duty at [facility] 24 hours a day by calling [phone] Pending Studies at Discharge: Yes Studies:: Blood cultures Stand-Alone Forms: My [facility], Smoking Cessation Medications and DC Order Prescriptions: New magnesium chloride [Mag 64] 64 mg Tablet,Delayed Release (Dr/Ec) 64 mg PO BID Qty: 30 0RF potassium chloride 20 mEq tablet extended release 20 meq PO DAILY Qty: 5 0RF Continued quetiapine 100 mg tablet 100 mg PO HS cholecalciferol (vitamin D3) [Vitamin D3] 50 mcg (2,000 unit) Capsule 50 mcg PO DAILY triamcinolone acetonide [Nasacort] 55 mcg Aerosol,[place] 1 spray INTRANASAL DAILY Rx Instructions: administer into each nostril Medical Marijuana 1 dose PO DAILY sertraline 50 mg tablet 50 mg PO DAILY Discharge Orders: Discharge Order (Routine); Ordered 08/19/24 Ordered By: Bijan Patel Admission Data Admit Date/Time: 08/18/24 01:47 Attending Provider: Bijan Patel Admit Provider: Henrry Dickinson Primary Care Provider: Charity Barraza Other Providers: Dwain Miller; Henrry Dickinson; Allan Washington
--- NOTE | 2024-08-19 15:02 | Electrocardiogram Report ---
Test Reason : Blood Pressure : */* mmHG Vent. Rate : 58 BPM Atrial Rate : 58 BPM P-R Int : 142 ms QRS Dur : 98 ms QT Int : 414 ms P-R-T Axes : 62 44 50 degrees QTcB Int : 406 ms Sinus bradycardia Nonspecific T wave abnormality Abnormal ECG When compared with ECG of 18-Aug-2024 17:01, (unconfirmed) Nonspecific T wave abnormality now evident in Anterolateral leads Confirmed by Zana Devine ([id number]) on 08/19/2024 3:01:37 PM Referred By: REFERRED SELF Confirmed By: Zana Devine
[2024-08-19 15:12] VITALS: PULSE 72
--- NOTE | 2024-08-19 15:39 | Electrocardiogram Report ---
Test Reason : Blood Pressure : */* mmHG Vent. Rate : 64 BPM Atrial Rate : 64 BPM P-R Int : 120 ms QRS Dur : 96 ms QT Int : 404 ms P-R-T Axes : * 34 59 degrees QTcB Int : 416 ms Poor data quality, interpretation may be adversely affected Normal sinus rhythm Normal ECG When compared with ECG of 18-Aug-2024 00:02, No significant change was found Confirmed by Zana Devine ([id number]) on 08/19/2024 3:38:56 PM Referred By: REFERRED SELF Confirmed By: Zana Devine
== END 2024-08-19 15:29 | disposition home or self-care (01) | DRG 948 ==
LOC: ED 22:06 → SUATTDRO 08-18 01:47 → EDINP 08-18 01:47 → 2S 08-18 05:43